=== PATIENT | male | born 1955 | race American Indian/Alaskan Native ===

== ENCOUNTER 2017-11-29 01:29 | Inpatient (IN) | payer MEDICAID ==
[2017-11-29 02:25] LABS: Basophils % (Auto) 0.7 % (0.0-1.8); Eosinophils # (Auto) 0.1 K/mm3 (0.0-0.4); Eosinophils % (Auto) 1.1 % (0.0-4.3); Hemoglobin 13.9 gm/dl (11.8-15.2); Lymphocytes # (Auto) 2.5 K/mm3 (1.2-5.4); Lymphocytes % (Auto) 40.4 % (13.4-35.0); Mean Corpuscular HGB Conc 34 % (32-34); Mean Corpuscular Hemoglobin 31 pg (28-32); Mean Corpuscular Volume 92 fl (84-94); Monocytes # (Auto) 0.5 K/mm3 (0.0-0.8); Monocytes % (Auto) 7.7 % (0.0-7.3); Platelet Count 365 K/mm3 (140-440); Red Blood Count 4.46 M/mm3 (3.65-5.03); Red Cell Distribution Width 13.8 % (13.2-15.2)
[2017-11-29 02:43] LABS: BUN/Creatinine Ratio 15; Blood Urea Nitrogen 9 mg/dL (9-20); Calcium 9.1 mg/dL (8.4-10.2); Hemolysis Index 14
--- NOTE | 2017-11-29 03:55 | Emergency Department Report ---
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 Patient denies nausea, vomiting, shortness of breath, or diaphoresis. Pain improved with nitroglycerin sublingual 1 and aspirin in route to the hospital. Patient presented stating his pain was 5/10 in intensity but at time of my evaluation pain was down to 0. No calf tenderness or edema reported. He is compliant with his aspirin and Plavix and other medication. 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 05/29/17 Unknown Rx Clopidogrel [Plavix] 75 mg PO QDAY #30 tablet 05/29/17 Unknown Rx Lisinopril [Zestril TAB] 40 mg PO QDAY #30 tablet 05/29/17 Unknown Rx Metoprolol [Lopressor TAB] 100 mg PO QHS #30 tablet 05/29/17 Unknown Rx Pravastatin [Pravachol] 40 mg PO QHS #30 tablet 05/29/17 Unknown Rx amLODIPine [Norvasc] 5 mg PO DAILY #30 tablet 05/29/17 Unknown Rx Furosemide [Lasix] 20 mg PO QDAY #30 tablet 05/30/17 Unknown Rx ISOSORBIDE MONOnitrate [Imdur ER] 30 mg PO DAILY #30 tab.er.24h 05/30/17 Unknown Rx Allergies Allergy/AdvReac Type Severity Reaction Status Date / Time No Known Allergies Allergy Verified 04/24/15 20:47 Heart Score - HEART Score History: Slightly suspicious EKG: Non-specific Age: 45-65 Risk factors: > 3 risk factors or hx of atherosclerotic disease Troponin: < normal limit HEART Score: 4 ED Review of Systems ROS: Stated complaint: CHEST PAIN Other details as noted in HPI Comment: All other systems reviewed and negative ED Past Medical Hx - Past Medical History Previous Medical History?: Yes Hx Hypertension: Yes Hx Congestive Heart Failure: Yes (ischemic cardiopathy with EF of 30-35%) Hx Diabetes: Yes Hx Asthma: No Hx COPD: No Additional medical history: Cardiac stent, high cholesterol - Surgical History Past Surgical History?: Yes Hx Coronary Stent: Yes (LAD and mid circumflex artery stent) - Social History Smoking Status: Current Every Day Smoker Substance Use Type: None - Medications Home Medications: Home Medications Medication Instructions Recorded Confirmed Last Taken Type Metformin HCl [Glumetza] 1,000 mg PO BID 08/26/13 05/28/17 Unknown History Potassium Chloride [Klor-Con M10] 10 meq PO AC 08/26/13 05/28/17 Unknown History glipiZIDE [glipiZIDE XL] 10 mg PO QDAY 08/26/13 05/28/17 Unknown History Gentamicin 0.3% Ophth Soln 1 drops OP Q4H #1 bottle 04/08/15 05/28/17 Unknown Rx Aspirin [Adult Low Dose Aspirin EC] 81 mg PO DAILY #30 tablet. 05/29/17 Unknown Rx Clopidogrel [Plavix] 75 mg PO QDAY #30 tablet 05/29/17 Unknown Rx Lisinopril [Zestril TAB] 40 mg PO QDAY #30 tablet 05/29/17 Unknown Rx Metoprolol [Lopressor TAB] 100 mg PO QHS #30 tablet 05/29/17 Unknown Rx Pravastatin [Pravachol] 40 mg PO QHS #30 tablet 05/29/17 Unknown Rx amLODIPine [Norvasc] 5 mg PO DAILY #30 tablet 05/29/17 Unknown Rx Furosemide [Lasix] 20 mg PO QDAY #30 tablet 05/30/17 Unknown Rx ISOSORBIDE MONOnitrate [Imdur ER] 30 mg PO DAILY #30 tab.er.24h 05/30/17 Unknown Rx ED Physical Exam - General Limitations: No Limitations - Other Other exam information: General: No limitations, patient is alert in no acute distress Head exam: Atraumatic, normocephalic Eyes exam: Normal appearance ENT: Moist mucous membrane, normal oropharynx Neck exam: Normal inspection, full range of motion, no meningismus nontender Respiratory exam: Clear to auscultation bilateral, no wheezes, rales, crackles Cardiovascular: Normal rate and rhythm, normal heart sounds Abdomen: Soft, nondistended, and nontender, with normal bowel sounds, no rebound, or guarding. Chest wall nontender Extremity: Full range of motion normal inspection no deformity, tenderness or edema Back: Normal Inspection, full range of motion, no tenderness Neurologic: Alert, oriented x3, cranial nerves intact, no motor or sensory deficit Psychiatric: normal affect, normal mood Skin: Warm, dry, intact ED Course Vital Signs 11/29/17 11/29/17 01:46 01:54 Temperature 98.2 F Pulse Rate 66 Respiratory 18 16 Rate Blood Pressure 137/76 O2 Sat by Pulse 99 97 Oximetry - Consultations Consultation #1: 11/29/17 03:56 consult ordered for BRIELLE heart under Dr Meggan Barrett did not call tonight since pt is pain free, neg enzymes, and unchanged ekg may be consulted in am ED Medical Decision Making - Lab Data Result diagrams: 11/29/17 01:59 11/29/17 01:59 Lab Results 11/29/17 11/29/17 11/29/17 Range/Units 01:59 01:59 02:50 WBC 6.1 (4.5-11.0) K/mm3 RBC 4.46 (3.65-5.03) M/mm3 Hgb 13.9 (11.8-15.2) gm/dl Hct 41.0 (35.5-45.6) % MCV 92 (84-94) fl MCH 31 (28-32) pg MCHC 34 (32-34) % RDW 13.8 (13.2-15.2) % Plt Count 365 (140-440) K/mm3 Lymph % (Auto) 40.4 H (13.4-35.0) % [place] % (Auto) 7.7 H (0.0-7.3) % Eos % (Auto) 1.1 (0.0-4.3) % Baso % (Auto) 0.7 (0.0-1.8) % Lymph # 2.5 (1.2-5.4) K/mm3 [place] # 0.5 (0.0-0.8) K/mm3 Eos # 0.1 (0.0-0.4) K/mm3 Baso # 0.0 (0.0-0.1) K/mm3 Seg Neutrophils % 50.1 (40.0-70.0) % Seg Neutrophils # 3.1 (1.8-7.7) K/mm3 D-Dimer < 135.00 (0-234) ng/mlDDU Sodium 139 (137-145) mmol/L Potassium 3.8 (3.6-5.0) mmol/L Chloride 102.9 (98-107) mmol/L Carbon Dioxide 24 (22-30) mmol/L Anion Gap 16 mmol/L BUN 9 (9-20) mg/dL Creatinine 0.6 L (0.8-1.5) mg/dL Estimated GFR > 60 ml/min BUN/Creatinine Ratio 15 % Glucose 136 H (75-100) mg/dL Calcium 9.1 (8.4-10.2) mg/dL Troponin T < 0.010 (0.00-0.029) ng/mL - EKG Data -: EKG Interpreted by Ca EKG shows normal: sinus rhythm, axis (qrs -1), QRS complexes (qrsd 92), ST-T waves (no stemi) Rate: normal (64) - EKG Data When compared to previous EKG there are: no significant change - Radiology Data Radiology results: report reviewed read by radiology cxr: naf - Medical Decision Making Patient presents with atypical chest pain but has significant cardiac risk factors EKG unchanged compared to previous, initial troponin negative, and d-dimer negative Pain-free after nitroglycerin and aspirin given prior to patient arrival Given his significant cardiac history patient be admitted for cardiology evaluation to determine if further testing or medication modification is required. Consult ordered - Differential Diagnosis chest x-ray, a tubal chest pain, costochondritis, [place], unstable angina, PE Critical Care Time: No Critical care attestation.: If time is entered above; I have spent that time in minutes in the direct care of this critically ill patient, excluding procedure time. 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
--- NOTE | 2017-11-29 04:31 | XRay Report ---
FINAL REPORT PROCEDURE: XR CHEST 1V AP TECHNIQUE: Chest radiograph anteroposterior view. CPT 48577 HISTORY: left cp COMPARISON: No prior studies are available for comparison. FINDINGS: Heart: Normal. Mediastinum/Vessels: Normal. Lungs/Pleural space: Normal. Bony thorax: No acute osseous abnormality. Life support devices: None. IMPRESSION: No acute cardiopulmonary abnormality.
[2017-11-29] MEDS ORDERED: MORPHINE IV PRN (04:33)
[2017-11-29] MEDS ORDERED: TYLENOL PO PRN (04:35)
[2017-11-29] MEDS ORDERED: NITROSTAT SL PRN (04:35)
[2017-11-29] MEDS ORDERED: ZOFRAN IV PRN (04:38)
[2017-11-29] MEDS: NITRO-BID 2% TP SCH ×2 (05:19→10:58)
--- NOTE | 2017-11-29 05:48 | History and Physical Report ---
CHIEF COMPLAINT: Chest pain. HISTORY OF PRESENT ILLNESS: The patient is a 62-year-old male who started having left-sided chest pain when he was having an argument with a family member, and said that the pain was about 5/10 in intensity. The pain did not radiate, it was not associated with nausea, vomiting, shortness of breath or diaphoresis. The pain was relieved with nitroglycerin and also with aspirin which was given to the patient en route to the hospital. There is no history of dizziness. No history of fever, cough and pain is not affected by movement or deep breath. PAST MEDICAL HISTORY: The patient's past medical history is pertinent for hypertension, congestive heart failure due to his ischemic cardiomyopathy with ejection fraction of 30-35%. The patient also has past history of diabetes mellitus, and coronary artery disease. Also, there is past history of high cholesterol. PAST SURGICAL HISTORY: Pertinent for cardiac stent placed, which was done in May 2017 in this hospital. FAMILY HISTORY: Noncontributory. SOCIAL HISTORY: The patient smokes cigarettes, does not drink alcohol and does not use illicit drugs. MEDICATIONS: The patient is on metformin 1000 mg by mouth twice daily, potassium chloride 10 mEq by mouth a.c., glipizide 10 mg by mouth daily, gentamicin ophthalmic solution 1 drop to the affected eye every 4 hours. The patient is on 81 mg daily by mouth daily, enteric coated, and on Plavix 75 mg by mouth patient, Zestril 40 mg by mouth daily, Lopressor 100 mg at bedtime, Pravastatin 40 mg at bedtime, amlodipine 5 mg by mouth daily, Lasix 20 mg by mouth daily, Imdur extended release by mouth daily. ALLERGIES: There are no known drug allergies. REVIEW OF SYSTEMS: CONSTITUTIONAL: There is no fever, no chills, no diaphoresis. HEENT: There is no headache or sore throat. CARDIOVASCULAR: Chest pain is present. No orthopnea. RESPIRATORY: There is no shortness of breath or cough. GASTROINTESTINAL: There is no nausea, no vomiting, no abdominal pain, diarrhea or constipation. NEUROLOGICAL: There is no numbness, no dizziness, no altered mental status. MUSCULOSKELETAL: There is no joint pain or swelling. DERMATOLOGICAL: There is no skin rash or itching. GENITOURINARY SYSTEM: There is no dysuria, hematuria or flank pain. Rest of system review is normal. PHYSICAL EXAMINATION: GENERAL: At the time of exam, the patient was found to be alert, oriented x 3 and not in acute distress. VITAL SIGNS: At the time of presentation showed temperature of 98.2 degrees Fahrenheit, pulse 66, respirations 18, blood pressure 137/76, O2 sat of 99% on room air. HEENT: Showed pupils to be equal, round, reactive to light and accommodation. Extraocular muscles are intact. NECK: Supple with no JVD or carotid bruit. CARDIOVASCULAR: Showed normal first and second heart sounds with no gallops or murmurs. RESPIRATORY: Showed good air entry on both sides of the lungs with no abnormal breath sounds. GASTROINTESTINAL SYSTEM: Show abdomen to be full, soft, nontender with no organomegaly or rigidity. NEUROLOGIC: Shows no focal deficit. MUSCULOSKELETAL SYSTEM: Show no joint swelling or tenderness. DERMATOLOGICAL SYSTEM: Show no skin rash. GENITOURINARY SYSTEM: Showing no costovertebral angle tenderness. PERTINENT LABORATORY AND IMAGING STUDIES: The patient had portable chest x-ray done that shows no active cardiopulmonary lesion. The patient's lab results shows CBC with normal white count, normal hemoglobin, normal hematocrit as well as normal MCV with CBC differential showing elevated lymphocyte count of 40.4% and elevated monocyte count of 7.7% with normal segmented neutrophils. The patient's coagulation studies were unremarkable. Chemistry was unremarkable. The patient's troponin level came back normal. DIAGNOSIS: Chest pain. PLAN: 1. The patient will be admitted to telemetry. 2. The patient will have cardiac enzymes involving troponin, total CK, and CKMB, check q 6 hours x 2 more level. 3. The patient will be on aspirin 325 mg by mouth daily and heparin 5000 units subQ q. 12 hours for DVT prophylaxis. 4. The patient will be on IV morphine 2 mg every 5 minutes as needed for chest pain and will be on sublingual nitroglycerin 0.4 mg every 5 minutes as needed for breakthrough chest pain. The patient will be on nitro paste 1-inch to the anterior chest wall q.6 hours, and will be on Zofran 4 mg IV every 8 hours for nausea and vomiting. 5. The patient will be on oxygen by nasal cannula 2 liters/minute and will be on Tylenol 650 mg by mouth every 4 hours for fever and headache. 6. The patient will continue Cardiology consult with Dr. Barrett, which was requested by the Emergency Room because of chest pain and history of stent placement within the last 6 to 7 months. 7. The patient's home medications will be reconciled and started when the patient starts taking medications by mouth. The patient will remain n.p.o. 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 JOB# [id number] OCN/NTS
[2017-11-29 07:29] LABS: Creatine Kinase MB 1.6 ng/mL (0.0-4.0)
--- NOTE | 2017-11-29 08:42 | Consultation ---
History of Present Illness Consult date: 11/29/17 Consult reason: chest pain History of present illness: This is a 62yr old male who is admitted with atypical chest pain thus this cardiac consultation. Cardiac enzymes are negative thus far. His presenting ECG is a sinus rhythm with left ventricular hypertrophy. He is on medical therapy for ischemic cardiomyopathy and coronary artery disease. Just 6 months ago he underwent a cardiac catheterization that reports patent stents mid LAD and mid Circ. There is MOLD TOOLER of the distal RCA, with L-R collaterals. Ejection Fraction of 30%. Patient reports since his initial treatment his chest pain has resolved. He is currently chest pain free. He denies shortness of breath. Medications and Allergies Allergies Allergy/AdvReac Type Severity Reaction Status Date / Time No Known Allergies Allergy Verified 04/24/15 20:47 Home Medications Medication Instructions Recorded Confirmed Last Taken Type Metformin HCl [Glumetza] 1,000 mg PO BID 08/26/13 05/28/17 Unknown History Potassium Chloride [Klor-Con M10] 10 meq PO AC 08/26/13 05/28/17 Unknown History glipiZIDE [glipiZIDE XL] 10 mg PO QDAY 08/26/13 05/28/17 Unknown History Gentamicin 0.3% Ophth Soln 1 drops OP Q4H #1 bottle 04/08/15 05/28/17 Unknown Rx Aspirin [Adult Low Dose Aspirin EC] 81 mg PO DAILY #30 tablet.dr 05/29/17 Unknown Rx Clopidogrel [Plavix] 75 mg PO QDAY #30 tablet 05/29/17 Unknown Rx Lisinopril [Zestril TAB] 40 mg PO QDAY #30 tablet 05/29/17 Unknown Rx Metoprolol [Lopressor TAB] 100 mg PO QHS #30 tablet 05/29/17 Unknown Rx Pravastatin [Pravachol] 40 mg PO QHS #30 tablet 05/29/17 Unknown Rx amLODIPine [Norvasc] 5 mg PO DAILY #30 tablet 05/29/17 Unknown Rx Furosemide [Lasix] 20 mg PO QDAY #30 tablet 05/30/17 Unknown Rx ISOSORBIDE MONOnitrate [Imdur ER] 30 mg PO DAILY #30 tab.er.24h 05/30/17 Unknown Rx Active Meds: Active Medications Acetaminophen (Tylenol) 650 mg PO Q4H PRN PRN Reason: Pain, Mild (1-3) Aspirin (Aspirin) 325 mg PO QDAY [facility] Heparin Sodium (Porcine) (Heparin) 5,000 unit SUB-Q Q12HR VERNA Morphine Sulfate (Morphine) 2 mg IV Q5MIN PRN PRN Reason: Chest Pain Nitroglycerin (Nitrostat) 0.4 mg SL .Q5MIN PRN PRN Reason: Chest Pain Nitroglycerin (Nitro-Bid 2%) 1 inch TP QIDNTG [facility]; Protocol Last Admin: 11/29/17 05:19 Dose: 1 inch Ondansetron HCl (Zofran) 4 mg IV Q8H PRN PRN Reason: Nausea And Vomiting Physical Examination Vital Signs Pulse BP 68 137/76 11/29/17 01:37 11/29/17 01:37 General appearance: no acute distress HEENT: Positive: PERRL Cardiac: Positive: Reg Rate and Rhythm Results 11/29/17 01:59 11/29/17 01:59 Cardiac Enzymes 11/29/17 Range/Units 06:12 CK-MB (CK-2) 1.6 (0.0-4.0) ng/mL CBC 11/29/17 Range/Units 01:59 WBC 6.1 (4.5-11.0) K/mm3 RBC 4.46 (3.65-5.03) M/mm3 Hgb 13.9 (11.8-15.2) gm/dl Hct 41.0 (35.5-45.6) % Plt Count 365 (140-440) K/mm3 Lymph # 2.5 (1.2-5.4) K/mm3 [place] # 0.5 (0.0-0.8) K/mm3 Eos # 0.1 (0.0-0.4) K/mm3 Baso # 0.0 (0.0-0.1) K/mm3 Comprehensive Metabolic Panel 11/29/17 Range/Units 01:59 Sodium 139 (137-145) mmol/L Potassium 3.8 (3.6-5.0) mmol/L Chloride 102.9 (98-107) mmol/L Carbon Dioxide 24 (22-30) mmol/L BUN 9 (9-20) mg/dL Creatinine 0.6 L (0.8-1.5) mg/dL Glucose 136 H (75-100) mg/dL Calcium 9.1 (8.4-10.2) mg/dL Assessment and Plan Chest pain, atypical negative cardiac enzymes no acute ischemic changes on his ECG C done 05/2017: 1. Multivessel CAD. 2. Ischemic CMP, EF 30%. 3. Patent stents mid LAD and mid Circ. 4. 100% MOLD TOOLER of the distal RCA, with L-R collaterals. Hx of CAD Diabetes mellitus Tobacco abuse Advised tobacco cessation. Resume medical therapy for coronary artery disease and ischemic cardiomyopathy.
[2017-11-29 09:11] VITALS: BP 157/89
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
[2017-11-29] MEDS ORDERED: HEPARIN SUB-Q SCH (10:00)
[2017-11-29] MEDS ORDERED: ASPIRIN PO SCH (10:00)
== END 2017-11-29 13:30 | disposition home or self-care (01) | DRG 206 ==
LOC: ED 01:29 → 4A 05:38
PROVIDERS: ADMIT Internal Medicine; ATTEND Internal Medicine
DX: M94.0 Chondrocostal junction syndrome [Tietze] (principal); E11.9 Type 2 diabetes mellitus without complications; I25.5 Ischemic cardiomyopathy; I25.10 Atherosclerotic heart disease of native coronary artery without angina pectoris; Z95.5 Presence of coronary angioplasty implant and graft; F17.210 Nicotine dependence, cigarettes, uncomplicated; I10 Essential (primary) hypertension; E78.00 Pure hypercholesterolemia, unspecified; Z71.6 Tobacco abuse counseling
CPT/HCPCS: 36415; 71045; 80048; 82550; 82553; 82962; 84484; 85025; 85379; 93005; 93010; 99406; J1644

== ENCOUNTER 2018-07-13 12:58 | Inpatient (IN) | payer MEDICAID ==
[2018-07-13] MEDS ORDERED: ASPIRIN PO ONE (14:24)
[2018-07-13] MEDS ORDERED: NITRO-BID 2% TP ONE (14:24)
--- NOTE | 2018-07-13 14:28 | Emergency Department Report ---
HPI - General Chief Complaint: Chest Pain Time Seen by Provider: 07/13/18 14:16 - HPI HPI: Room 1 The patient is a 63-year-old male presenting with a chief complaint chest pain. Patient states his symptoms began last night with left-sided/substernal chest discomfort lasted approximately 10 minutes. He states the pain resolved when he went to sleep. This morning the patient states the chest pain returned for another 5 minutes then resolved. Patient denies shortness of breath, nausea/vomiting or diaphoresis. The patient had a cardiac cath requiring a cardiac stent placement over 10 years ago. Location: Chest Duration: [See above] Quality: Pain Severity: Moderate Modifying factors: [see above] Context: [see above] Mode of transportation: [not driving] ED Past Medical Hx - Past Medical History Hx Hypertension: Yes Hx Congestive Heart Failure: Yes Hx Diabetes: Yes Additional medical history: Cardiac stent, high cholesterol - Surgical History Hx Coronary Stent: Yes - Family History Family history: no significant - Social History Smoking Status: Former Smoker (none 6 months) Substance Use Type: None (denies illicit drug use) - Medications Home Medications: Home Medications Medication Instructions Recorded Confirmed Last Taken Type Metformin HCl [Glumetza] 1,000 mg PO BID 08/26/13 02/24/18 Unknown History Aspirin [Adult Low Dose Aspirin EC] 81 mg PO DAILY #30 tablet.dr 02/25/18 Unknown Rx Clopidogrel [Plavix] 75 mg PO QDAY #30 tablet 02/25/18 Unknown Rx Furosemide [Lasix TAB] 40 mg PO QDAY #30 tablet 02/25/18 Unknown Rx ISOSORBIDE MONOnitrate [Imdur ER] 30 mg PO DAILY #30 tab.er.24h 02/25/18 Unknown Rx Lisinopril [Zestril TAB] 2.5 mg PO QDAY #30 tablet 02/25/18 Unknown Rx Metoprolol [Lopressor TAB] 50 mg PO DAILY #30 tablet 02/25/18 Unknown Rx Potassium Chloride [Klor-Con M10] 10 meq PO AC #30 tab.er.prt 02/25/18 Unknown Rx Pravastatin [Pravachol] 20 mg PO QHS #30 tablet 02/25/18 Unknown Rx amLODIPine [Norvasc] 5 mg PO DAILY #30 tablet 02/25/18 Unknown Rx glipiZIDE [glipiZIDE XL] 10 mg PO QDAY #30 tab.er.24 04/04/18 Unknown Rx ED Review of Systems ROS: Stated complaint: CHEST PAIN Other details as noted in HPI Constitutional: denies: diaphoresis Eyes: denies: eye pain ENT: denies: throat pain Respiratory: denies: shortness of breath Cardiovascular: chest pain Endocrine: no symptoms reported Gastrointestinal: denies: nausea, vomiting Genitourinary: denies: dysuria Musculoskeletal: denies: back pain Neurological: denies: headache Physical Exam - Physical Exam Vital Signs: Vital Signs 07/13/18 13:51 Temperature 97.9 F Pulse Rate 67 Respiratory 16 Rate Blood Pressure 133/99 O2 Sat by Pulse 97 Oximetry Physical Exam: GENERAL: The patient is well-developed well-nourished male lying on stretcher not appearing to be in acute distress. [] HEENT: Normocephalic. Atraumatic. Extraocular motions are intact. Patient has moist mucous membranes. NECK: Supple. Trachea midline CHEST/LUNGS: Clear to auscultation. There is no respiratory distress noted. HEART/CARDIOVASCULAR: Regular. There is no tachycardia. There is no gallop rub or murmur. ABDOMEN: Abdomen is soft, nontender. Patient has normal bowel sounds. There is no abdominal distention. SKIN: There is no rash. There is no edema. There is no diaphoresis. NEURO: The patient is awake, alert, and oriented. The patient is cooperative. The patient has normal speech MUSCULOSKELETAL: There is no evidence of acute injury. ED Course Vital Signs 07/13/18 13:51 Temperature 97.9 F Pulse Rate 67 Respiratory 16 Rate Blood Pressure 133/99 O2 Sat by Pulse 97 Oximetry ED Medical Decision Making - Lab Data Result diagrams: 07/13/18 14:29 07/13/18 14:29 Laboratory Tests 07/13/18 07/13/18 07/13/18 14:29 14:29 14:29 WBC 5.8 RBC 4.31 Hgb 13.6 Hct 38.8 MCV 90 MCH 31 MCHC 35 H RDW 13.8 Plt Count 361 Lymph % (Auto) 42.3 H [place] % (Auto) 8.9 H Eos % (Auto) 1.3 Baso % (Auto) 0.5 Lymph # 2.5 [place] # 0.5 Eos # 0.1 Baso # 0.0 Seg Neutrophils % 47.0 Seg Neutrophils # 2.7 PT 12.8 INR 0.91 APTT 26.9 Sodium 141 Potassium 3.6 Chloride 101.6 Carbon Dioxide 26 Anion Gap 17 BUN 9 Creatinine 0.8 Estimated GFR > 60 BUN/Creatinine Ratio 11 Glucose 81 Calcium 8.4 Magnesium 1.80 Total Creatine Kinase 144 CK-MB (CK-2) 1.6 CK-MB (CK-2) Rel Index 1.1 Troponin T < 0.010 NT-Pro-B Natriuret Pep 1205 H - EKG Data -: EKG Interpreted by Me Rate: normal - EKG Data When compared to previous EKG there are: previous EKG unavailable Interpretation: other (atrial fibrillation at a rate of 39 beats per minute) - Radiology Data Radiology results: image reviewed (chest x-ray) interpreted by me: Chest x-ray-no focal infiltrates, no pneumothorax - Differential Diagnosis ACS, pericarditis, new-onset atrial fibrillation Critical care attestation.: If time is entered above; I have spent that time in minutes in the direct care of this critically ill patient, excluding procedure time. ED Disposition Clinical Impression: New onset atrial fibrillation, Chest pain Disposition: -09 OP ADMIT IP TO THIS HOSP Is pt being admited?: Yes Does the pt Need Aspirin: Yes Condition: Fair Instructions: Chest Pain (ED) Referrals: MILI BUTLER MD [Primary Care Provider] - 3-5 Days Time of Disposition: 15:11 (hospitalist paged (Dr Modi))
[2018-07-13 14:44] LABS: Basophils % (Auto) 0.5 % (0.0-1.8); Eosinophils # (Auto) 0.1 K/mm3 (0.0-0.4); Eosinophils % (Auto) 1.3 % (0.0-4.3); Hematocrit 38.8 % (35.5-45.6); Hemoglobin 13.6 gm/dl (11.8-15.2); Lymphocytes # (Auto) 2.5 K/mm3 (1.2-5.4); Lymphocytes % (Auto) 42.3 % (13.4-35.0); Mean Corpuscular HGB Conc 35 % (32-34); Mean Corpuscular Volume 90 fl (84-94); Monocytes # (Auto) 0.5 K/mm3 (0.0-0.8); Monocytes % (Auto) 8.9 % (0.0-7.3); Platelet Count 361 K/mm3 (140-440); Red Blood Count 4.31 M/mm3 (3.65-5.03); Red Cell Distribution Width 13.8 % (13.2-15.2)
[2018-07-13 14:56] LABS: INR 0.91 (0.87-1.13); Partial Thromboplastin Time 26.9 Sec. (24.2-36.6)
--- NOTE | 2018-07-13 15:04 | XRay Report ---
AP CHEST: HISTORY: chest pain Cardiomegaly has resolved since 02/24/18. AP view of the chest demonstrates a normal mediastinal and cardiac contour with clear lungs and normal bony and soft tissue structures. IMPRESSION: Unremarkable AP chest.
[2018-07-13 15:05] LABS: Creatine Kinase MB 1.6 ng/mL (0.0-4.0)
[2018-07-13 15:07] LABS: BUN/Creatinine Ratio 11; Blood Urea Nitrogen 9 mg/dL (9-20); Calcium 8.4 mg/dL (8.4-10.2); Hemolysis Index 8
[2018-07-13 15:15] LABS: Free T4 (Free Thyroxine) 1.16 ng/dL (0.76-1.46)
--- NOTE | 2018-07-13 15:55 | History and Physical Report ---
History of Present Illness Chief complaint: My chest hurts History of present illness: 63 YO Male with HTN, Systolic CHF, DM, HLD, CAD S/P Stent Placement, Obesity presents to ED for evaluation. Pt states that he has experienced chest pain over the past 1 day with worsening symptoms over the past 6 hours. Pt states that pain is 6-7/10, Substernal, Localized to the left chest, lasted for over 10 minutes which prompted patient to come to ED. Pt acknowledges decreased exercise tolerance, Orthopnea/PND, dypsnea on exertion. Pt denies fever, chills,palpitations, shortness of breath, prolonged travel/immobility, produ ctive cough, skin rash, or recent ill contacts. Pt seen and evaluated in ED and found to have symptoms consistent with CHF Decompensation as well as Chest Pain. Pt admitted to telemetry. Cardiology consulted in ED. Past History Past Medical History: CAD, diabetes, heart failure, hypertension, hyperlipidemia Past Surgical History: Other (Cardiac stent placement) Social history: single. denies: smoking, alcohol abuse, prescription drug abuse Family history: CAD, diabetes, hypertension Medications and Allergies Allergies Allergy/AdvReac Type Severity Reaction Status Date / Time No Known Allergies Allergy Verified 07/13/18 13:51 Home Medications Medication Instructions Recorded Confirmed Last Taken Type Metformin HCl [Glumetza] 1,000 mg PO BID 08/26/13 07/13/18 Unknown History Aspirin [Adult Low Dose Aspirin EC] 81 mg PO DAILY #30 tablet.dr 02/25/18 07/13/18 Unknown Rx Clopidogrel [Plavix] 75 mg PO QDAY #30 tablet 02/25/18 07/13/18 Unknown Rx Furosemide [Lasix TAB] 40 mg PO QDAY #30 tablet 02/25/18 07/13/18 Unknown Rx ISOSORBIDE MONOnitrate [Imdur ER] 30 mg PO DAILY #30 tab.er.24h 02/25/18 07/13/18 Unknown Rx Lisinopril [Zestril TAB] 2.5 mg PO QDAY #30 tablet 02/25/18 07/13/18 Unknown Rx Metoprolol [Lopressor TAB] 50 mg PO DAILY #30 tablet 02/25/18 07/13/18 Unknown R x Potassium Chloride [Klor-Con M10] 10 meq PO AC #30 tab.er.prt 02/25/18 07/13/18 Unknown Rx Pravastatin [Pravachol] 20 mg PO QHS #30 tablet 02/25/18 07/13/18 Unknown Rx amLODIPine [Norvasc] 5 mg PO DAILY #30 tablet 02/25/18 07/13/18 Unknown Rx glipiZIDE [glipiZIDE XL] 10 mg PO QDAY #30 tab.er.24 04/04/18 07/13/18 Unknown Rx Review of Systems Constitutional: no weight loss, no weight gain, no fever, no chills Ears, nose, mouth and throat: no ear pain, no ear discharge, no tinnitis, no decreased hearing, no nose pain Cardiovascular: chest pain, orthopnea, dyspnea on exertion, paroxysmal nocturnal dyspnea, leg edema, decreased exercise tolerance, no lightheadedness Respiratory: no cough, no cough with sputum, no hemoptysis Gastrointestinal: no nausea, no vomiting, no diarrhea Genitourinary Male: no flank pain, no discharge, no urinary frequency, no urinary hesitancy Rectal: no pain, no incontinence, no bleeding Musculoskeletal: no neck stiffness, no neck pain, no shooting arm pain, no arm numbness/tingling, no low back pain Integumentary: no rash, no pruritis, no redness, no sores, no wounds Neurological: no transient paralysis, no paralysis, no weakness, no parathesias, no numbness, no tingling Psychiatric: no anxiety, no memory loss, no change in sleep habits, no sleep disturbances, no hypersomnia, no change in appetite Endocrine: no cold intolerance, no heat intolerance, no polyphagia, no excessive thirst, no polydipsia Hematologic/Lymphatic: no easy bruising, no easy bleeding Allergic/Immunologic: no urticaria, no allergic rhinitis, no wheezing Exam - Constitutional Vitals: Temp Pulse Resp BP Pulse Ox 97.9 F 45 L 16 166/88 97 07/13/18 13:51 07/13/18 14:42 07/13/18 13:51 07/13/18 14:42 07/13/18 13:51 General appearance: Present: mild distress, obese - EENT Eyes: Present: PERRL ENT: hearing intact, clear oral mucosa - Neck Neck: Present: supple, normal ROM - Respiratory Respiratory effort: normal Respiratory: bilateral: CTA - Cardiovascular Heart Sounds: Present: S1 & S2. Absent: rub, click - Extremities Extremity abnormal: edema Peripheral Pulses: within normal limits - Abdominal General gastrointestinal: Present: soft, non-tender, non-distended, normal bowel sounds Male genitourinary: Present: normal - Integumentary Integumentary: Present: clear, warm, dry - Musculoskeletal Musculoskeletal: gait normal, strength equal bilaterally - Psychiatric Psychiatric: appropriate mood/affect, intact judgment & insight, memory intact - Neurologic Neurologic: CNII-XII intact, moves all extremities Results - Labs CBC & Chem 7: 07/13/18 14:29 07/13/18 14:29 Labs: Abnormal lab results 07/13/18 07/13/18 Range/Units 14:29 14:29 MCHC 35 H (32-34) % Lymph % (Auto) 42.3 H (13.4-35.0) % [place] % (Auto) 8.9 H (0.0-7.3) % NT-Pro-B Natriuret Pep 1205 H (0-900) pg/mL Assessment and Plan - Patient Problems (1) CHF (congestive heart failure) Current Visit: Yes Status: Acute Qualifiers: Heart failure type: systolic Heart failure chronicity: acute on chronic Qualified Code(s): I50.23 - Acute on chronic systolic (congestive) heart failure Plan to address problem: Admit to telemetry: Echo reviewed, cardiology consulted in ED, strict I/O, daily weight, monitor uop q shift, afterload reduction, BNP, D dimer (2) Chest pain Current Visit: Yes Status: Acute Qualifiers: Ischemic chest pain type: stable angina pectoris Plan to address problem: Admit to telemetry, serial cardiac enzymes, ekg, cardiology consulted in ED, morphine, supplemental oxygen, nitro, aspirin, (3) Diabetes Current Visit: No Status: Acute (4) HTN (hypertension) Current Visit: No Status: Acute Qualifiers: Hypertension type: essential hypertension Qualified Code(s): I10 - Essential (primary) hypertension Plan to address problem: Monitor BP q shift, continue medical management, (5) HLD (hyperlipidemia) Current Visit: Yes Status: Acute Qualifiers: Hyperlipidemia type: mixed hyperlipidemia Qualified Code(s): E78.2 - Mixed hyperlipidemia Plan to address problem: Statin therapy, lipid panel, low cholesterol diet (6) DVT prophylaxis Current Visit: Yes Status: Acute Plan to address problem: SCD to BLE while in bed.
[2018-07-13] MEDS ORDERED: MORPHINE IV PRN (15:59)
[2018-07-13] MEDS ORDERED: TYLENOL PO PRN (15:59)
[2018-07-13] MEDS ORDERED: ZOFRAN IV PRN (15:59)
[2018-07-13] MEDS ORDERED: SODIUM CHLORIDE FLUSH SYRINGE 10 ML IV PRN ×2 (15:59)
[2018-07-13] MEDS ORDERED: BABY ASPIRIN PO STA (15:59)
[2018-07-13] MEDS ORDERED: PROVENTIL IH PRN (15:59)
[2018-07-13] MEDS ORDERED: NITROSTAT SL PRN (15:59)
[2018-07-13 16:42] LABS: Chol/HDL Ratio 3.9 %
[2018-07-14] MEDS: SODIUM CHLORIDE FLUSH SYRINGE 10 ML IV SCH ×3 (00:30→22:19)
--- NOTE | 2018-07-14 01:13 | Consultation ---
History of Present Illness Consult date: 07/14/18 Consult reason: other (Chest "tingling") History of present illness: 63 YO Male with HTN, Systolic CHF, DM, HLD, CAD S/P Stent Placement, Obesity presents to ED for evaluation. Pt states that he has experienced chest pain, which he describes as a "tingling" sensation, over the past 1 day with worsening symptoms over the past 6 hours. Pt states to the admitting physician that pain is 6-7/10, Substernal, Localized to the left chest, lasted for over 10 minutes which prompted patient to come to ED. To me the patient states that he is experiencing a "tingling" sensation that is not painful substernally, that lasts for a few seconds to 5 minutes. Pt acknowledges decreased exercise tolerance, Orthopnea/PND, dypsnea on exertion to the admitting physician, but denies them to me. Pt denies palpitations, shortness of breath, dizziness or syncope. Past History Past Medical History: CAD, diabetes, heart failure, hypertension, hyperlipidemia Past Surgical History: Other (Cardiac stent placement) Social history: single. denies: smoking, alcohol abuse, prescription drug abuse Family history: CAD, diabetes, hypertension Medications and Allergies Allergies Allergy/AdvReac Type Severity Reaction Status Date / Time No Known Allergies Allergy Verified 07/13/18 13:51 Home Medications Medication Instructions Recorded Confirmed Last Taken Type Metformin HCl [Glumetza] 1,000 mg PO BID 08/26/13 07/13/18 Unknown History Aspirin [Adult Low Dose Aspirin EC] 81 mg PO DAILY #30 tablet.dr 02/25/18 07/13/18 Unknown Rx Clopidogrel [Plavix] 75 mg PO QDAY #30 tablet 02/25/18 07/13/18 Unknown Rx Furosemide [Lasix TAB] 40 mg PO QDAY #30 tablet 02/25/18 07/13/18 Unknown Rx ISOSORBIDE MONOnitrate [Imdur ER] 30 mg PO DAILY #30 tab.er.24h 02/25/18 07/13/18 Unknown Rx Lisinopril [Zestril TAB] 2.5 mg PO QDAY #30 tablet 02/25/18 07/13/18 Unknown Rx Metoprolol [Lopressor TAB] 50 mg PO DAILY #30 tablet 02/25/18 07/13/18 Unknown Rx Potassium Chloride [Klor-Con M10] 10 meq PO AC #30 tab.er.prt 02/25/18 07/13/18 Unknown Rx Pravastatin [Pravachol] 20 mg PO QHS #30 tablet 02/25/18 07/13/18 Unknown Rx amLODIPine [Norvasc] 5 mg PO DAILY #30 tablet 02/25/18 07/13/18 Unknown Rx glipiZIDE [glipiZIDE XL] 10 mg PO QDAY #30 tab.er.24 04/04/18 07/13/18 Unknown Rx Active Meds: Active Medications Acetaminophen (Tylenol) 650 mg PO Q4H PRN PRN Reason: Pain MILD(1-3)/Fever >100.5/QUEVEDO Albuterol (Proventil) 2.5 mg IH Q4HRT PRN PRN Reason: Shortness Of Breath Morphine Sulfate (Morphine) 2 mg IV Q4H PRN PRN Reason: Pain, Moderate (4-6) Nitroglycerin (Nitrostat) 0.4 mg SL Q5M PRN PRN Reason: Chest Pain Ondansetron HCl (Zofran) 4 mg IV Q8H PRN PRN Reason: Nausea And Vomiting Sodium Chloride (Sodium Chloride Flush Syringe 10 Ml) 10 ml IV BID VERNA Last Admin: 07/14/18 00:30 Dose: 10 ml Documented by: Sodium Chloride (Sodium Chloride Flush Syringe 10 Ml) 10 ml IV PRN PRN PRN Reason: LINE FLUSH Sodium Chloride (Sodium Chloride Flush Syringe 10 Ml) 10 ml IV PRN PRN PRN Reason: LINE FLUSH Review of Systems All systems: negative (pertinent positives in HPI) Physical Examination Vital Signs Temp Pulse Resp BP Pulse Ox 97.9 F 67 16 133/99 97 07/13/18 13:51 07/13/18 13:51 07/13/18 13:51 07/13/18 13:51 07/13/18 13:51 General appearance: no acute distress HEENT: Positive: PERRL, EOMI Cardiac: Positive: Reg Rate and Rhythm, S1/S2 Lungs: Positive: Normal Exam Neuro: Positive: Grossly Intact Abdomen: Positive: Soft, Active Bowel Sounds Extremities: Present: normal. Absent: edema Results 07/13/18 14:29 07/14/18 05:40 Cardiac Enzymes 03/08/19 Range/Units 14:29 CK-MB (CK-2) 1.6 (0.0-4.0) ng/mL Coagulation 07/13/18 Range/Units 14:29 PT 12.8 (12.2-14.9) Sec. INR 0.91 (0.87-1.13) APTT 26.9 (24.2-36.6) Sec. Lipids 07/13/18 Range/Units 16:14 Triglycerides 97 (2-149) mg/dL Cholesterol 156 (50-199) mg/dL HDL Cholesterol 40 (40-59) mg/dL Cholesterol/HDL Ratio 3.90 % CBC 07/13/18 Range/Units 14:29 WBC 5.8 (4.5-11.0) K/mm3 RBC 4.31 (3.65-5.03) M/mm3 Hgb 13.6 (11.8-15.2) gm/dl Hct 38.8 (35.5-45.6) % Plt Count 361 (140-440) K/mm3 Lymph # 2.5 (1.2-5.4) K/mm3 [place] # 0.5 (0.0-0.8) K/mm3 Eos # 0.1 (0.0-0.4) K/mm3 Baso # 0.0 (0.0-0.1) K/mm3 Comprehensive Metabolic Panel 07/13/18 Range/Units 14:29 Sodium 141 (137-145) mmol/L Potassium 3.6 (3.6-5.0) mmol/L Chloride 101.6 (98-107) mmol/L Carbon Dioxide 26 (22-30) mmol/L BUN 9 (9-20) mg/dL Creatinine 0.8 (0.8-1.5) mg/dL Glucose 81 (75-100) mg/dL Calcium 8.4 (8.4-10.2) mg/dL EKG interpretations - Telemetry EKG Rhythm: Sinus Rhythm Assessment and Plan (1) CHF (congestive heart failure) Echo reviewed Patient has a known ischemic cardiomyopathy with EF 30-35% Continue medical therapy with BB and ACEi Currently appears euvolemic by phyical exam strict I/O, daily weight gentle diuresis as needed (2) Chest pain patient had a LHC 05/25 that showed patent LM, LAD and LCx. Patient has an occluded RCA in the midsegment that is filled distally via left to right collaterals No further workup at this time Maximize medical therapy for coronary disease (3) Diabetes management per primary (4) HTN (hypertension) Maximize medical therapy for blood pressure (5) HLD (hyperlipidemia) high intensity statin
[2018-07-14] MEDS ORDERED: APRESOLINE IV PRN (03:00)
[2018-07-14] MEDS: NITRO-BID 2% TP SCH ×5 (03:26→17:57)
[2018-07-14 06:32] LABS: BUN/Creatinine Ratio 13; Blood Urea Nitrogen 8 mg/dL (9-20); Calcium 8.2 mg/dL (8.4-10.2); Hemolysis Index 5
--- NOTE | 2018-07-14 12:17 | Progress Note ---
Assessment and Plan Assessment and plan: Acute systolic heart failure exacerbation. EF 30-35%. Continue medical therapy with beta marcella and REGULO inhibitor. Cardiology reports that patient appears euvolemic by phyical exam. Continue strict I and O's, daily weight and gentle diuresis as needed. Ischemic cardiomyopathy. As above. Chest pain. Patient had a LHC 05/25 that showed patent LM, LAD and LCx. Patient has an occluded RCA in the midsegment that is filled distally via left to right collaterals. Cardiology reports no further workup at this time. Continued maximal medical therapy for coronary disease. Diabetes mellitus type 2. Continue checks and sliding scale insulin. Hypertension. Optimize BP with antihypertensive medications. Hyperlipidemia. Continue statin. Disposition. Anticipate discharge in a.m. History Interval history: No new issues overnight Hospitalist Physical - Constitutional Vitals: Temp Pulse Resp BP Pulse Ox 97.9 F 83 20 163/116 97 07/14/18 07:47 07/14/18 07:47 07/14/18 07:47 07/14/18 07:47 07/14/18 07:47 General appearance: Present: no acute distress - EENT Eyes: Present: PERRL, EOM intact ENT: hearing intact, clear oral mucosa, dentition normal - Neck Neck: Present: supple, normal ROM - Respiratory Respiratory effort: normal Respiratory: bilateral: CTA - Cardiovascular Rhythm: regular Heart Sounds: Present: S1 & S2. Absent: gallop, rub - Extremities Extremities: no ischemia, No edema, Full ROM - Abdominal General gastrointestinal: soft, non-tender, non-distended, normal bowel sounds - Integumentary Integumentary: Present: clear, warm, dry - Neurologic Neurologic: CNII-XII intact, moves all extremities Results - Labs CBC & Chem 7: 07/13/18 14:29 07/14/18 05:40 Labs: Laboratory Last Values WBC 5.8 K/mm3 (4.5-11.0) 07/13/18 14:29 RBC 4.31 M/mm3 (3.65-5.03) 07/13/18 14:29 Hgb 13.6 gm/dl (11.8-15.2) 07/13/18 14:29 Hct 38.8 % (35.5-45.6) 07/13/18 14:29 MCV 90 fl (84-94) 07/13/18 14:29 MCH 31 pg (28-32) 07/13/18 14:29 MCHC 35 % (32-34) H 07/13/18 14:29 RDW 13.8 % (13.2-15.2) 07/13/18 14:29 Plt Count 361 K/mm3 (140-440) 07/13/18 14:29 Lymph % (Auto) 42.3 % (13.4-35.0) H 07/13/18 14:29 [place] % (Auto) 8.9 % (0.0-7.3) H 07/13/18 14:29 Eos % (Auto) 1.3 % (0.0-4.3) 07/13/18 14:29 Baso % (Auto) 0.5 % (0.0-1.8) 07/13/18 14:29 Lymph # 2.5 K/mm3 (1.2-5.4) 07/13/18 14:29 [place] # 0.5 K/mm3 (0.0-0.8) 07/13/18 14:29 Eos # 0.1 K/mm3 (0.0-0.4) 07/13/18 14:29 Baso # 0.0 K/mm3 (0.0-0.1) 07/13/18 14:29 Seg Neutrophils % 47.0 % (40.0-70.0) 07/13/18 14:29 Seg Neutrophils # 2.7 K/mm3 (1.8-7.7) 07/13/18 14:29 PT 12.8 Sec. (12.2-14.9) 07/13/18 14:29 INR 0.91 (0.87-1.13) 07/13/18 14:29 APTT 26.9 Sec. (24.2-36.6) 07/13/18 14:29 D-Dimer 149.77 ng/mlDDU (0-234) 07/13/18 14:24 Sodium 138 mmol/L (137-145) 07/14/18 05:40 Potassium 3.2 mmol/L (3.6-5.0) L 07/14/18 05:40 Chloride 100.6 mmol/L (98-107) 07/14/18 05:40 Carbon Dioxide 27 mmol/L (22-30) 07/14/18 05:40 Anion Gap 14 mmol/L 07/14/18 05:40 BUN 8 mg/dL (9-20) L 07/14/18 05:40 Creatinine 0.6 mg/dL (0.8-1.5) L 07/14/18 05:40 Estimated GFR > 60 ml/min 07/14/18 05:40 BUN/Creatinine Ratio 13 % 07/14/18 05:40 Glucose 138 mg/dL (75-100) H 07/14/18 05:40 POC Glucose 105 (70-105) 07/14/18 07:47 Calcium 8.2 mg/dL (8.4-10.2) L 07/14/18 05:40 Magnesium 1.80 mg/dL (1.7-2.3) 07/13/18 14:29 Total Creatine Kinase 144 units/L (55-170) 07/13/18 14:29 CK-MB (CK-2) 1.6 ng/mL (0.0-4.0) 07/13/18 14:29 CK-MB (CK-2) Rel Index 1.1 (0-4) 07/13/18 14:29 Troponin T < 0.010 ng/mL (0.00-0.029) 07/13/18 22:39 NT-Pro-B Natriuret Pep 1205 pg/mL (0-900) H 07/13/18 14:29 Triglycerides 97 mg/dL (2-149) 07/13/18 16:14 Cholesterol 156 mg/dL (50-199) 07/13/18 16:14 LDL Cholesterol Direct 105 mg/dL (50-130) 07/13/18 16:14 HDL Cholesterol 40 mg/dL (40-59) 07/13/18 16:14 Cholesterol/HDL Ratio 3.90 % 07/13/18 16:14 TSH 1.720 mlU/mL (0.270-4.200) 07/13/18 14:29 Free T4 1.16 ng/dL (0.76-1.46) 07/13/18 14:29 Nutrition/Malnutrition Assess - Dietary Evaluation Nutrition/Malnutrition Findings: Nutrition Notes Start: 07/14/18 11:32 Freq: Status: Active Protocol: Document 07/14/18 11:32 AC (Rec: 07/14/18 11:33 AC [id number]) Nutrition Notes 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 Nutrition Intervention Follow-Up By: 07/18/18 Additional Comments F/U: intakes, need for assessment
[2018-07-14] MEDS: COREG PO SCH ×2 (12:54→22:18)
[2018-07-14] MEDS: IMDUR PO SCH (12:54)
[2018-07-14] MEDS: ZESTRIL PO SCH (12:55)
[2018-07-14] MEDS: BABY ASPIRIN PO SCH (12:55)
[2018-07-14] MEDS: HumuLIN R SUB-Q SCH ×2 (18:00→22:18)
--- NOTE | 2018-07-14 22:33 | Progress Note ---
Assessment and Plan (1) CHF (congestive heart failure) Echo reviewed Patient has a known ischemic cardiomyopathy with EF 30-35% Continue medical therapy with BB and ACEi Currently appears euvolemic by phyical exam strict I/O, daily weight gentle diuresis as needed (2) Chest pain patient had a LHC 05/25 that showed patent LM, LAD and LCx. Patient has an occl uded RCA in the midsegment that is filled distally via left to right collaterals No further workup at this time Maximize medical therapy for coronary disease If the patient has chest pain on maximal medical therapy, then would consider for DIAMOND CLEANER of RCA (3) Diabetes management per primary (4) HTN (hypertension) Maximize medical therapy for blood pressure (5) HLD (hyperlipidemia) high intensity statin Subjective Date of service: 07/15/18 Interval history: No acute events. Resting comfortably. No chest pain or SOB. Objective Vital Signs Temp Pulse Resp BP BP Pulse Ox 07/14/18 21:20 100 07/14/18 19:46 54 L 100 07/14/18 19:45 97.4 F L 55 L 18 137/86 90 07/14/18 17:32 75 20 112/57 96 07/14/18 16:20 98.0 F 55 L 20 124/78 96 07/14/18 12:55 62 134/88 07/14/18 12:54 62 134/88 07/14/18 12:28 98.6 F 62 20 134/88 97 07/14/18 07:47 97.9 F 83 20 163/116 97 07/14/18 05:18 97.9 F 80 20 117/87 92 07/14/18 04:21 50 L 07/14/18 03:31 72 161/89 95 07/14/18 03:26 72 161/89 07/13/18 23:17 72 18 168/98 95 - Physical Examination HEENT: Positive: PERRL, EOMI Neuro: Positive: Grossly Intact Abdomen: Positive: Soft, Active Bowel Sounds Extremities: Present: normal. Absent: edema - Labs and Meds Comprehensive Metabolic Panel 07/14/18 Range/Units 05:40 Sodium 138 (137-145) mmol/L Potassium 3.2 L (3.6-5.0) mmol/L Chloride 100.6 (98-107) mmol/L Carbon Dioxide 27 (22-30) mmol/L BUN 8 L (9-20) mg/dL Creatinine 0.6 L (0.8-1.5) mg/dL Glucose 138 H (75-100) mg/dL Calcium 8.2 L (8.4-10.2) mg/dL
[2018-07-15] MEDS: NITRO-BID 2% TP SCH ×2 (05:28→10:13)
[2018-07-15 08:10] VITALS: BP 135/107
--- NOTE | 2018-07-15 08:58 | Discharge Summary ---
Providers - Providers Date of Admission: 07/13/18 15:59 Date of discharge: 07/15/18 Attending physician: SHANELL DAILY 07/13/18 Consult to Cardiac Rehabilitation [CONS] Routine Reason For Exam: Phase I 07/13/18 15:59 Consult to Physician [CONS] Routine Comment: Consulting Provider: ANKIT VALADEZ Physician Instructions: Reason For Exam: chf Primary care physician: [facility], Hospitalization Reason for admission: cp Condition: Fair Hospital course: 63 YO Male with HTN, Systolic CHF, DM, HLD, CAD S/P Stent Placement, Obesity presented to ED for evaluation of chest pain, which he described as a "tingling" sensation, over the past 1 day with worsening symptoms over the past 6 hours prior to admission. Pt stated that pain was 6-7/10, Substernal, Localized to the left chest, lasted for over 10 minutes which prompted patient to come to ED. Pt acknowledged decreased exercise tolerance, Orthopnea/PND, dypsnea on exertion and denied palpitations, shortness of breath, dizziness or syncope. The patient was admitted with diagnosis of chest pain. Cardiology was consulted and repor jeffry patient had a LHC 05/25 that showed patent LM, LAD and LCx. Patient has an occluded RCA in the midsegment that is filled distally via left to right collaterals. Cardiology recommended no further workup at this time and to continue maximizing medical therapy for coronary disease. Continue medical therapy with beta marcella and REGULO inhibitor. Cardiology felt patient was euvolemic by exam and the chronic systolic heart failure with a baseline and compensated. Cardiac isoenzymes remain negative and EKG with no acute changes. Telemetry monitoring was unremarkable. Therefore, patient is felt to have received maximal hospital benefit for discharge. Dedicated discharge time 32 minutes. Disposition: - TO HOME OR SELFCARE Time spent for discharge: 32 - Discharge Diagnoses (1) CHF (congestive heart failure) Status: Acute Qualifiers: Heart failure type: systolic Heart failure chronicity: acute on chronic Qualified Code(s): I50.23 - Acute on chronic systolic (congestive) heart failure (2) Chest pain Status: Acute (3) HLD (hyperlipidemia) Status: Acute Qualifiers: Hyperlipidemia type: mixed hyperlipidemia Qualified Code(s): E78.2 - Mixed hyperlipidemia (4) Diabetes Status: Acute (5) GERD (gastroesophageal reflux disease) Status: Acute (6) HTN (hypertension) Status: Acute Qualifiers: Hypertension type: essential hypertension Qualified Code(s): I10 - Essential (primary) hypertension (7) Hx of heart artery stent Status: Acute (8) Ischemic cardiomyopathy Status: Acute Core Measure Documentation - Palliative Care Palliative Care/ Comfort Measures: Not Applicable - Core Measures Any of the following diagnoses?: heart failure, none - Heart Failure Discharge Requirements REGULO/ARB for LVSD if EF <40%: Yes Beta marcella at discharge: Yes Exam - Constitutional Vitals: Temp Pulse Resp BP Pulse Ox 97.9 F 91 H 18 135/107 95 07/15/18 08:00 07/15/18 08:05 07/15/18 08:00 07/15/18 08:00 07/15/18 08:05 General appearance: Present: no acute distress, well-nourished - EENT Eyes: Present: PERRL ENT: hearing intact, clear oral mucosa - Neck Neck: Present: supple, normal ROM - Respiratory Respiratory effort: normal Respiratory: bilateral: CTA - Cardiovascular Heart Sounds: Present: S1 & S2. Absent: rub, click - Extremities Extremities: pulses symmetrical, No edema Peripheral Pulses: within normal limits - Abdominal General gastrointestinal: Present: soft, non-tender, non-distended, normal bowel sounds Male genitourinary: Present: normal - Integumentary Integumentary: Present: clear, warm, dry - Musculoskeletal Musculoskeletal: gait normal, strength equal bilaterally - Psychiatric Psychiatric: appropriate mood/affect, intact judgment & insight - Neurologic Neurologic: CNII-XII intact, moves all extremities Plan Activity: no restrictions Weight Bearing Status: Full Weight Bearing Diet: diabetic [facility] - 3-5 Days MAGDA GUNTER MD [Staff Physician] - 7 Days Prescriptions: Aspirin [Adult Low Dose Aspirin EC] 81 mg PO DAILY #30 tablet. glipiZIDE [glipiZIDE XL] 10 mg PO QDAY #30 tab.er.24 ISOSORBIDE MONOnitrate [Imdur ER] 30 mg PO DAILY #30 tab.er.24h Potassium Chloride [Klor-Con M10] 10 meq PO AC #30 tab.er.prt Furosemide [Lasix TAB] 40 mg PO QDAY #30 tablet Metoprolol [Lopressor TAB] 50 mg PO DAILY #30 tablet amLODIPine [Norvasc] 5 mg PO DAILY #30 tablet Clopidogrel [Plavix] 75 mg PO QDAY #30 tablet Pravastatin [Pravachol] 20 mg PO QHS #30 tablet Lisinopril [Zestril TAB] 2.5 mg PO QDAY #30 tablet
[2018-07-15] MEDS: HumuLIN R SUB-Q SCH (09:34)
[2018-07-15] MEDS ORDERED: COREG PO SCH (10:00)
[2018-07-15] MEDS: BABY ASPIRIN PO SCH (10:14)
[2018-07-15] MEDS: IMDUR PO SCH (10:14)
[2018-07-15] MEDS: ZESTRIL PO SCH (10:14)
== END 2018-07-15 11:40 | disposition home or self-care (01) | DRG 293 ==
LOC: ED 12:58 → 4A 15:59
PROVIDERS: ADMIT Internal Medicine; ATTEND Hospitalist
DX: I11.0 Hypertensive heart disease with heart failure (principal); I50.23 Acute on chronic systolic (congestive) heart failure; E11.9 Type 2 diabetes mellitus without complications; I25.5 Ischemic cardiomyopathy; E66.9 Obesity, unspecified; I25.10 Atherosclerotic heart disease of native coronary artery without angina pectoris; E78.2 Mixed hyperlipidemia; I48.91 Unspecified atrial fibrillation; K21.9 Gastro-esophageal reflux disease without esophagitis; Z82.49 Family history of ischemic heart disease and other diseases of the circulatory system; Z83.3 Family history of diabetes mellitus; Z95.5 Presence of coronary angioplasty implant and graft; Z68.33 Body mass index [BMI] 33.0-33.9, adult; Z79.82 Long term (current) use of aspirin; Z79.899 Other long term (current) drug therapy
CPT/HCPCS: 36415; 71045; 80048; 80061; 82550; 82553; 82962; 83735; 83880; 84439; 84443; 84484; 85025; 85379; 85610; 85730; 93005; 93010; 94760; G0378; A9270-GY; J1815

== ENCOUNTER 2018-09-11 08:32 | Day surgery (SDC) | payer MEDICAID ==
[2018-09-11 08:07] LABS: BUN/Creatinine Ratio 16; Blood Urea Nitrogen 13 mg/dL (9-20); Calcium 8.3 mg/dL (8.4-10.2); Hemolysis Index 0
[2018-09-11 08:23] LABS: INR 0.89 (0.87-1.13)
[~2018-09-11 08:32] MED LIST: BABY ASPIRIN PO SCH; CALAN ONE; HALFPRIN EC PO ONE; HEPARIN/NS 5000 UNIT/500ML(CATH LAB) 1,000 ML IR ONE; NACL 0.9% 500 ML 500 ML IV SCH; NACL 0.9% 500 ML 500 ML ONE; NITROGLYCERIN SYRINGE 3 ML ONE; XYLOCAINE 2% INFILTRATI ONE
[2018-09-11] MEDS ORDERED: SUBLIMAZE ONE (09:03)
[2018-09-11] MEDS ORDERED: VERSED ONE (09:03)
[2018-09-11] MEDS: HEPARIN 10,000 UNITS/10 ML ONE ×2 (09:12→09:20)
[2018-09-11 09:37] LABS: Hematocrit 41.1 % (35.5-45.6); Hemoglobin 13.9 gm/dl (11.8-15.2); Mean Corpuscular HGB Conc 34 % (32-34); Mean Corpuscular Volume 92 fl (84-94); Platelet Count 280 K/mm3 (140-440); Red Blood Count 4.47 M/mm3 (3.65-5.03); Red Cell Distribution Width 13.9 % (13.2-15.2)
[2018-09-11] MEDS ORDERED: HEPARIN 10,000 UNITS/10 ML ONE (09:46)
[2018-09-11] MEDS ORDERED: APRESOLINE IV NR (10:06)
--- NOTE | 2018-09-11 11:06 | Short Stay Summary ---
Short Stay Documentation Date of service: 09/11/18 - History H&P: obtained from office - Allergies and Medications Current Medications: Allergies No Known Allergies Allergy (Verified 07/13/18 13:51) Home Medications Medication Instructions Recorded Confirmed Last Taken Type Metformin HCl [Glumetza] 1,000 mg PO BID 08/26/13 09/11/18 09/10/18 History Aspirin [Adult Low Dose Aspirin EC] 81 mg PO DAILY #30 tablet. 07/15/18 09/11/18 09/11/18 07:10 Rx Clopidogrel [Plavix] 75 mg PO QDAY #30 tablet 07/15/18 09/11/18 09/10/18 Rx Furosemide [Lasix TAB] 40 mg PO QDAY #30 tablet 07/15/18 09/11/18 09/10/18 Rx Lisinopril [Zestril TAB] 2.5 mg PO QDAY #30 tablet 07/15/18 09/11/18 Unknown Rx Pravastatin [Pravachol] 20 mg PO QHS #30 tablet 07/15/18 09/11/18 09/10/18 Rx amLODIPine [Norvasc] 5 mg PO DAILY #30 tablet 07/15/18 09/11/18 09/10/18 Rx glipiZIDE [glipiZIDE XL] 10 mg PO QDAY #30 tab.er.24 07/15/18 09/11/18 09/10/18 Rx Carvedilol [Coreg] 3.125 mg PO BID 09/11/18 09/11/18 09/10/18 History ISOSORBIDE MONOnitrate [Imdur ER] 30 mg PO DAILY 09/11/18 09/11/18 09/10/18 History Lisinopril [Zestril TAB] 10 mg PO QDAY 09/11/18 09/11/18 09/10/18 History Metoprolol Xl [Metoprolol 50 mg PO QDAY 09/11/18 09/11/18 09/10/18 History SUCCINATE ER TAB] Potassium Chloride [Klor-Con M10] 10 meq PO DAILY 09/11/18 09/11/18 Unknown History Active Medications Aspirin (Baby Aspirin) 81 mg PO QDAY VERNA Hydralazine HCl (Apresoline) 10 mg IV ONCE NR Stop: 09/11/18 11:06 Last Admin: 09/11/18 10:21 Dose: 10 mg Documented by: Sodium Chloride (Nacl 0.9% 500 Ml) 500 mls @ 50 mls/hr IV DIRECT VERNA Stop: 09/11/18 17:59 Last Admin: 09/11/18 07:45 Dose: 50 mls/hr Documented by: - Brief post op/procedure progress note Date of procedure: 09/11/18 Pre-op diagnosis: CAD; abnormal stress test Post-op diagnosis: same Procedure: C - see dictated cath report Anesthesia: local Estimated blood loss: none Condition: stable - Disposition Condition at discharge: Stable Disposition: [id number]/[id number] - Discharge Diagnoses (1) CAD (coronary artery disease) Status: Chronic (2) Stented coronary artery Status: Chronic (3) Cardiomyopathy Status: Chronic (4) Diabetes Status: Chronic (5) HLD (hyperlipidemia) Status: Chronic Qualifiers: Short Stay Discharge Plan Wound: open to air, keep clean and dry, per your surgeon's advice Follow up with: MILI BUTLER MD [Primary Care Provider] - 7 Days MARIAM GLOVER MD [Staff Physician] - 7 Days
[2018-09-11 11:21] VITALS: BP 159/92
[2018-09-11 11:58] LABS: Band Neutrophils # (Manual) 0.1 K/mm3; Total Cells Counted 100
[2018-09-11 11:59] LABS: Platelet Estimate Consistent w Auto; RBC Morphology Normal
--- NOTE | 2018-09-11 13:35 | Cardiac Catherization Report ---
CARDIAC CATHETERIZATION REFERRING PHYSICIAN: Ambrocio Merritt MD INDICATION FOR PROCEDURE: The patient is an exceedingly pleasant 63-year-old -Irish male with dyspnea on exertion, chest pain, abnormal stress test, referred for left heart catheterization. Risks, benefits, and potential alternatives were explained at length prior to obtaining informed consent. PROCEDURE IN DETAIL: The patient was brought to catheterization lab in a postabsorptive state, prepped and draped in sterile fashion. Harry's test in right hand was normal. A 2% lidocaine used to anesthetize the right wrist. A standard 6-Yi hydrophilic sheath used to cannulate the right radial artery via modified Seldinger technique. All exchanges were performed to exchange a J-tipped guidewire. JL3.5 catheter used to engage the left main. No dampening or ventricularization. Cineangiography performed in all projections. JR4 catheter used to cross the aortic valve under fluoroscopic guidance. Left ventriculography performed in 30 GALVEZ and 30 PERUVIAN projections via hand injections, catheter flushed. Manual pullback performed with continuous pressure monitoring. Catheter used to engage the right coronary. No dampening or ventricularization. Cineangiography performed in all projections. DATA: Aortic pressure is 140/90, LV pressure is 140. LVP of 15 mmHg. Left ventriculography reveals moderate severe global left ventricular hypokinesis, estimated ejection fraction of 35-40%. No evidence of aortic stenosis. CORONARY ANATOMY: This is a right dominant system. Right coronary has a known chronic total occlusion in the mid segment, extensive left to right collaterals identified. The left main appears to have an 80% eccentric distal stenosis. The left circumflex is a moderate sized vessel, courses AV groove, stent in the mid circumflex appears to be patent. LAD stent with minimal in-stent restenosis in the proximal and mid segment. At this point, we chose to proceed with intravascular ultrasound to confirm distal left main disease. Additional heparin is given used JL3.5 guide with Pep wire placed in the distal LAD. Multiple passes were made. IVUS of the LAD and left main are performed. IVUS reveals severe ostial LAD and distal left main disease. MLA less than 3 mm2. Final angiogram reveals no complications. The patient is clinically stable, chest pain free. I directly supervised the administration of moderate sedation from 9:09 a.m. to 9:40 a.m. CONCLUSIONS: 1. Severe epicardial coronary disease as aforementioned 80% angiographic distal left main, ostial LAD confirmed by intravascular ultrasound with minimal luminal area of less than 3 mm2, patent stent in the LAD and left circumflex, chronic total occlusion of the mid right coronary with extensive left to right collaterals. 2. Moderate to severe global left ventricular hypokinesis, estimated ejection fraction of 35-40%. The patient is clinically stable, chest pain free at this point given his disease symptoms test findings, we will transfer to [facility] for probable coronary bypass surgery. Risks, benefits, alternatives discussed with the patient and his mother. All questions and concerns were addressed. JOB# [id number] ELBA/LOREN
== END 2018-09-11 11:30 | disposition other institution (70) ==
LOC: CATHLABREC 08:32
PROVIDERS: ATTEND Internal Medicine
DX: I25.118 Atherosclerotic heart disease of native coronary artery with other forms of angina pectoris (principal); I11.0 Hypertensive heart disease with heart failure; I50.9 Heart failure, unspecified; E11.9 Type 2 diabetes mellitus without complications; I25.5 Ischemic cardiomyopathy; K21.9 Gastro-esophageal reflux disease without esophagitis; I48.91 Unspecified atrial fibrillation; E78.5 Hyperlipidemia, unspecified; E78.00 Pure hypercholesterolemia, unspecified; J44.9 Chronic obstructive pulmonary disease, unspecified; Z79.899 Other long term (current) drug therapy; Z79.82 Long term (current) use of aspirin; Z87.891 Personal history of nicotine dependence; Z79.84 Long term (current) use of oral hypoglycemic drugs; Z95.5 Presence of coronary angioplasty implant and graft; Z83.3 Family history of diabetes mellitus; Z98.890 Other specified postprocedural states
CPT/HCPCS: 36415; 80048; 85007; 85025; 85347; 85610; 85730; 92978; 93005; 93010; 93458; 99156; 99157; C1753; C1769; C1887; C1894; J0360; J1644; J2250; J3010; J7040; Q9967

== ENCOUNTER 2018-12-27 23:04 | Emergency (ER) | payer MEDICAID ==
[2018-12-28 00:52] LABS: Hematocrit 39.6 % (35.5-45.6); Mean Corpuscular HGB Conc 33 % (32-34); Mean Corpuscular Volume 86 fl (84-94); Platelet Count 325 K/mm3 (140-440); Red Blood Count 4.63 M/mm3 (3.65-5.03); Red Cell Distribution Width 17.4 % (13.2-15.2)
[2018-12-28 01:16] LABS: Alanine Aminotransferase 11 units/L (7-56); Albumin 3.8 g/dL (3.9-5); BUN/Creatinine Ratio 17; Blood Urea Nitrogen 17 mg/dL (9-20); Calcium 9.1 mg/dL (8.4-10.2); Hemolysis Index 6
[2018-12-28 01:48] LABS: Basophils % (Manual) 0 % (0.0-1.8); Platelet Estimate Consistent w Auto; RBC Morphology Normal; Total Cells Counted 100
[2018-12-28 02:09] LABS: Bilirubin,Urine NEG (Negative); Blood,Urine NEG (Negative); Color,Urine Yellow (Yellow); Mucus,Urine FEW /HPF; Protein,Urine <15 mg/dL mg/dL (Negative); WBC,Urine < 1.0 /HPF (0.0-6.0)
--- NOTE | 2018-12-28 04:29 | Cat Scan Report ---
CT head/brain wo con INDICATION / CLINICAL INFORMATION: Weakness.. TECHNIQUE: All CT scans at this location are performed using CT dose reduction for ALARA by means of automated e xposure control. COMPARISON: None available. FINDINGS: The ventricular system is normal in size and configuration. There are mild patchy small vessel ischem ic changes, predominantly in the periventricular white matter bilaterally. No discrete focal lesion o r mass effect is seen. There is no evidence of intracranial hemorrhage or major vessel occlusion. The calvarium is intact. The visualized paranasal sinuses and mastoid air cells are clear. IMPRESSION: Small vessel ischemic changes bilaterally. Signer Name: Gael Moore MD Signed: 12/28/2018 4:25 AM Workstation Name: [id number]
[2018-12-28 05:17] VITALS: BP 147/92
--- NOTE | 2018-12-28 05:18 | Emergency Department Report ---
- General Chief complaint: Weakness Stated complaint: FATIGUE Time Seen by Provider: 12/28/18 02:27 Source: patient Mode of arrival: Ambulatory Limitations: No Limitations - History of Present Illness Severity scale (0 -10): 0 - Related Data Home Medications Medication Instructions Recorded Confirmed Last Taken Metformin HCl [Glumetza] 1,000 mg PO BID 08/26/13 09/11/18 09/10/18 Carvedilol [Coreg] 3.125 mg PO BID 09/11/18 09/11/18 09/10/18 ISOSORBIDE MONOnitrate [Imdur ER] 30 mg PO DAILY 09/11/18 09/11/18 09/10/18 Lisinopril [Zestril TAB] 10 mg PO QDAY 09/11/18 09/11/18 09/10/18 Metoprolol Xl [Metoprolol 50 mg PO QDAY 09/11/18 09/11/18 09/10/18 SUCCINATE ER TAB] Potassium Chloride [Klor-Con M10] 10 meq PO DAILY 09/11/18 09/11/18 Unknown Previous Rx's Medication Instructions Recorded Last Taken Type Aspirin [Adult Low Dose Aspirin EC] 81 mg PO DAILY #30 tablet. 07/15/18 09/11/18 07:10 Rx Clopidogrel [Plavix] 75 mg PO QDAY #30 tablet 07/15/18 09/10/18 Rx Furosemide [Lasix TAB] 40 mg PO QDAY #30 tablet 07/15/18 09/10/18 Rx Lisinopril [Zestril TAB] 2.5 mg PO QDAY #30 tablet 07/15/18 Unknown Rx Pravastatin [Pravachol] 20 mg PO QHS #30 tablet 07/15/18 09/10/18 Rx amLODIPine [Norvasc] 5 mg PO DAILY #30 tablet 07/15/18 09/10/18 Rx glipiZIDE [glipiZIDE XL] 10 mg PO QDAY #30 tab.er.24 07/15/18 09/10/18 Rx Allergies Allergy/AdvReac Type Severity Reaction Status Date / Time No Known Allergies Allergy Verified 07/13/18 13:51 ED Review of Systems ROS: Stated complaint: FATIGUE Other details as noted in HPI ED Past Medical Hx - Past Medical History Previous Medical History?: Yes Hx Hypertension: Yes Hx Heart Attack/AMI: No Hx Congestive Heart Failure: Yes Hx Diabetes: Yes Hx Deep Vein Thrombosis: No Hx Pulmonary Embolism: No Hx GERD: Yes Hx Liver Disease: No Hx Asthma: No Hx COPD: Yes Hx Tuberculosis: No Hx HIV: No Additional medical history: Cardiac stent, high cholesterol - Surgical History Past Surgical History?: Yes Hx Coronary Stent: Yes Hx Pacemaker: No Hx Internal Defibrillator: No Additional Surgical History: CABG - Social History Smoking Status: Current Every Day Smoker Substance Use Type: None - Medications Home Medications: Home Medications Medication Instructions Recorded Confirmed Last Taken Type Metformin HCl [Glumetza] 1,000 mg PO BID 08/26/13 09/11/18 09/10/18 History Aspirin [Adult Low Dose Aspirin EC] 81 mg PO DAILY #30 tablet. 07/15/18 09/11/18 09/11/18 07:10 Rx Clopidogrel [Plavix] 75 mg PO QDAY #30 tablet 07/15/18 09/11/18 09/10/18 Rx Furosemide [Lasix TAB] 40 mg PO QDAY #30 tablet 07/15/18 09/11/18 09/10/18 Rx Lisinopril [Zestril TAB] 2.5 mg PO QDAY #30 tablet 07/15/18 09/11/18 Unknown Rx Pravastatin [Pravachol] 20 mg PO QHS #30 tablet 07/15/18 09/11/18 09/10/18 Rx amLODIPine [Norvasc] 5 mg PO DAILY #30 tablet 07/15/18 09/11/18 09/10/18 Rx glipiZIDE [glipiZIDE XL] 10 mg PO QDAY #30 tab.er.24 07/15/18 09/11/18 09/10/18 Rx Carvedilol [Coreg] 3.125 mg PO BID 09/11/18 09/11/18 09/10/18 History ISOSORBIDE MONOnitrate [Imdur ER] 30 mg PO DAILY 09/11/18 09/11/18 09/10/18 History Lisinopril [Zestril TAB] 10 mg PO QDAY 09/11/18 09/11/18 09/10/18 History Metoprolol Xl [Metoprolol 50 mg PO QDAY 09/11/18 09/11/18 09/10/18 History SUCCINATE ER TAB] Potassium Chloride [Klor-Con M10] 10 meq PO DAILY 09/11/18 09/11/18 Unknown History ED Physical Exam - General Limitations: No Limitations ED Course Vital Signs 12/27/18 12/28/18 23:57 05:16 Temperature 98.4 F Pulse Rate 71 84 Respiratory 18 20 Rate Blood Pressure 164/101 Blood Pressure 147/92 [Right] O2 Sat by Pulse 100 98 Oximetry ED Medical Decision Making - Lab Data Result diagrams: 12/28/18 00:29 12/28/18 00:29 Critical care attestation.: If time is entered above; I have spent that time in minutes in the direct care of this critically ill patient, excluding procedure time. ED Disposition Clinical Impression: Weakness Disposition: [id number]-01 TO HOME OR SELFCARE Is pt being admited?: No Does the pt Need Aspirin: No Condition: Stable Instructions: Weakness (ED) Referrals: PRIMARY CARE, [Primary Care Provider] - 3-5 Days
== END 2018-12-28 05:25 | disposition home or self-care (01) ==
LOC: ED 23:04
DX: R53.1 Weakness (principal); I11.0 Hypertensive heart disease with heart failure; I50.9 Heart failure, unspecified; K21.9 Gastro-esophageal reflux disease without esophagitis; J44.9 Chronic obstructive pulmonary disease, unspecified; E78.00 Pure hypercholesterolemia, unspecified; E11.9 Type 2 diabetes mellitus without complications; F17.200 Nicotine dependence, unspecified, uncomplicated; Z79.84 Long term (current) use of oral hypoglycemic drugs; Z79.899 Other long term (current) drug therapy; Z79.82 Long term (current) use of aspirin; Z95.1 Presence of aortocoronary bypass graft
CPT/HCPCS: 36415; 70450; 80053; 81001; 85007; 85025; 99284

== ENCOUNTER 2019-02-06 09:52 | Emergency (ER) | payer MEDICAID ==
[2019-02-06] MEDS ORDERED: FUROSEMIDE 40 MG/4 ML INJ IV ONE (10:16)
[2019-02-06] MEDS ORDERED: hydrALAZINE 20 MG/1 ML INJ IV ONE (10:16)
--- NOTE | 2019-02-06 10:17 | Emergency Department Report ---
ED Shortness of Breath HPI - General Chief Complaint: Dyspnea/Respdistress Stated Complaint: KENNY Time Seen by Provider: 02/06/19 10:08 Source: patient Mode of arrival: Ambulatory Limitations: No Limitations - History of Present Illness Initial Comments: pt is a 63 yo AA male who comes to ER co inc SOB over the last few days. He has been out of his lasix for 2 weeks. He denies chest pain. SOB is worse with activity and when lying flat. Pt is welll known to cards here for he is S/P [place] in September. He had CABG done at [facility] with reports per cards of normal LVEF. PMH CABG HTN DM HPLD OBESE denies cig/drugs/etoh mother alive dad apr. unknown cause. Rx amio plavix statin metoformin K norvasc coreg lasix - out Pt has a bag of meds with him and I've gone thru them. There is no asa in the bag. Pt has appnt for Monday with cards but got too SOB today so he came to ER. He had called the office but they would not refill his lasix. MD Complaint: shortness of breath -: Gradual Consistency: constant Improves With: upright position Worsens With: lying flat, exertion Known History Of: congestive heart failure, diabetes, other Context: medication noncompliance Associated Symptoms: denies other symptoms - Related Data Home Medications Medication Instructions Recorded Confirmed Last Taken Metformin HCl [Glumetza] 1,000 mg PO BID 08/26/13 02/06/19 02/05/19 Carvedilol [Coreg] 3.125 mg PO BID 09/11/18 02/06/19 02/05/19 Potassium Chloride [Klor-Con M10] 20 meq PO DAILY 09/11/18 02/06/19 02/05/19 Previous Rx's Medication Instructions Recorded Last Taken Type Aspirin [Adult Low Dose Aspirin EC] 81 mg PO DAILY #30 tablet. 07/15/18 02/05/19 Rx Clopidogrel [Plavix] 75 mg PO QDAY #30 tablet 07/15/18 02/05/19 Rx Pravastatin [Pravachol] 20 mg PO QHS #30 tablet 07/15/18 02/05/19 Rx amLODIPine [Norvasc] 5 mg PO DAILY #30 tablet 07/15/18 02/05/19 Rx Apixaban [Eliquis starter pack] 5 mg PO BID #60 tab 02/06/19 Unknown Rx Aspirin [Adult Aspirin] 81 mg PO DAILY #30 tablet. 02/06/19 Unknown Rx Furosemide [Lasix TAB] 40 mg PO BID #60 tablet 02/06/19 Unknown Rx Allergies Allergy/AdvReac Type Severity Reaction Status Date / Time No Known Allergies Allergy Verified 07/13/18 13:51 ED Review of Systems ROS: Stated complaint: KENNY Other details as noted in HPI Comment: All other systems reviewed and negative ED Past Medical Hx - Past Medical History Previous Medical History?: Yes Hx Hypertension: Yes Hx CVA: No Hx Heart Attack/AMI: Yes Hx Congestive Heart Failure: Yes Hx Diabetes: Yes Hx Deep Vein Thrombosis: No Hx Pulmonary Embolism: No Hx GERD: Yes Hx Liver Disease: No Hx Renal Disease: No Hx of Cancer: No Hx Sickle Cell Disease: No Hx Arthritis: No Hx Headaches / Migraines: No Hx Seizures: No Hx Kidney Stones: No Hx Psychiatric Treatment: No Hx Asthma: No Hx COPD: Yes Hx Tuberculosis: No Hx Dementia: No Hx HIV: No Additional medical history: Cardiac stent, high cholesterol - Surgical History Past Surgical History?: Yes Hx Coronary Stent: Yes Hx Open Heart Surgery: Yes Hx Pacemaker: No Hx Internal Defibrillator: No Hx Cholecystectomy: No Hx Appendectomy: No Hx Breast Surgery: No Additional Surgical History: CABG - Family History Family history: no significant - Social History Smoking Status: Current Every Day Smoker Substance Use Type: None - Medications Home Medications: Home Medications Medication Instructions Recorded Confirmed Last Taken Type Metformin HCl [Glumetza] 1,000 mg PO BID 08/26/13 02/06/19 02/05/19 History Aspirin [Adult Low Dose Aspirin EC] 81 mg PO DAILY #30 tablet. 07/15/18 02/06/19 02/05/19 Rx Clopidogrel [Plavix] 75 mg PO QDAY #30 tablet 07/15/18 02/06/19 02/05/19 Rx Pravastatin [Pravachol] 20 mg PO QHS #30 tablet 07/15/18 02/06/19 02/05/19 Rx amLODIPine [Norvasc] 5 mg PO DAILY #30 tablet 07/15/18 02/06/19 02/05/19 Rx Carvedilol [Coreg] 3.125 mg PO BID 09/11/18 02/06/19 02/05/19 History Potassium Chloride [Klor-Con M10] 20 meq PO DAILY 09/11/18 02/06/19 02/05/19 History Apixaban [Eliquis starter pack] 5 mg PO BID #60 tab 02/06/19 Unknown Rx Aspirin [Adult Aspirin] 81 mg PO DAILY #30 tablet. 02/06/19 Unknown Rx Furosemide [Lasix TAB] 40 mg PO BID #60 tablet 02/06/19 Unknown Rx ED Physical Exam - General Limitations: No Limitations General appearance: alert - Head Head exam: Present: normocephalic - Eye Eye exam: Present: PERRL, EOMI - ENT ENT exam: Present: mucous membranes moist - Neck Neck exam: Present: normal inspection - Respiratory Respiratory exam: Present: normal lung sounds bilaterally, other (b cr ) - Cardiovascular Cardiovascular Exam: Present: regular rate, other (a flutter on monitor) - GI/Abdominal GI/Abdominal exam: Present: soft, other (obese/round) - Rectal Rectal exam: Present: deferred - Extremities Exam Extremities exam: Present: full ROM, normal capillary refill, pedal edema - Back Exam Back exam: Present: normal inspection - Neurological Exam Neurological exam: Present: alert, oriented X3, CN II-XII intact - Psychiatric Psychiatric exam: Present: normal affect, normal mood - Skin Skin exam: Present: warm, dry, intact ED Course Vital Signs 02/06/19 02/06/19 02/06/19 09:57 11:16 11:22 Temperature 97.8 F Pulse Rate 71 71 Respiratory 18 12 Rate Blood Pressure 154/71 Blood Pressure 199/138 154/87 [Right] O2 Sat by Pulse 98 95 Oximetry 02/06/19 12:55 Temperature Pulse Rate 76 Respiratory 18 Rate Blood Pressure Blood Pressure 138/89 [Right] O2 Sat by Pulse 100 Oximetry ED Medical Decision Making - Lab Data Result diagrams: 02/06/19 10:19 02/06/19 10:19 - EKG Data -: EKG Interpreted by Me - EKG Data Interpretation: no acute changes - Radiology Data Radiology results: report reviewed, image reviewed - Medical Decision Making Lab Results 02/06/19 02/06/19 02/06/19 Range/Units 10:19 10:19 10:19 WBC 6.1 (4.5-11.0) K/mm3 RBC 4.79 (3.65-5.03) M/mm3 Hgb 13.6 (11.8-15.2) gm/dl Hct 41.0 (35.5-45.6) % MCV 86 (84-94) fl MCH 28 (28-32) pg MCHC 33 (32-34) % RDW 19.1 H (13.2-15.2) % Plt Count 325 (140-440) K/mm3 Lymph % (Auto) 31.0 (13.4-35.0) % [place] % (Auto) 8.3 H (0.0-7.3) % Eos % (Auto) 1.2 (0.0-4.3) % Baso % (Auto) 1.0 (0.0-1.8) % Lymph # 1.9 (1.2-5.4) K/mm3 [place] # 0.5 (0.0-0.8) K/mm3 Eos # 0.1 (0.0-0.4) K/mm3 Baso # 0.1 (0.0-0.1) K/mm3 Seg Neutrophils % 58.5 (40.0-70.0) % Seg Neutrophils # 3.5 (1.8-7.7) K/mm3 PT 13.1 (12.2-14.9) Sec. INR 1.02 (0.87-1.13) APTT 27.4 (24.2-36.6) Sec. Sodium 140 (137-145) mmol/L Potassium 3.9 (3.6-5.0) mmol/L Chloride 103.2 (98-107) mmol/L Carbon Dioxide 23 (22-30) mmol/L Anion Gap 18 mmol/L BUN 11 (9-20) mg/dL Creatinine 0.8 (0.8-1.5) mg/dL Estimated GFR > 60 ml/min BUN/Creatinine Ratio 14 % Glucose 202 H (75-100) mg/dL Calcium 8.9 (8.4-10.2) mg/dL Total Bilirubin 0.50 (0.1-1.2) mg/dL AST 11 (5-40) units/L ALT 12 (7-56) units/L Alkaline Phosphatase 81 (35-129) units/L Troponin T < 0.010 (0.00-0.029) ng/mL NT-Pro-B Natriuret Pep (0-900) pg/mL Total Protein 7.3 (6.3-8.2) g/dL Albumin 4.3 (3.9-5) g/dL Albumin/Globulin Ratio 1.4 % Urine Color (Yellow) Urine Turbidity (Clear) Urine pH (5.0-7.0) Ur Specific [place] (1.003-1.030) Urine Protein (Negative) mg/dL Urine Glucose (UA) (Negative) mg/dL Urine Ketones (Negative) mg/dL Urine Blood (Negative) Urine Nitrite (Negative) Urine Bilirubin (Negative) Urine Urobilinogen (<2.0) mg/dL Ur Leukocyte Esterase (Negative) Urine WBC (Auto) (0.0-6.0) /HPF Urine RBC (Auto) (0.0-6.0) /HPF Urine Mucus /HPF 02/06/19 02/06/19 Range/Units 10:19 11:16 WBC (4.5-11.0) K/mm3 RBC (3.65-5.03) M/mm3 Hgb (11.8-15.2) gm/dl Hct (35.5-45.6) % MCV (84-94) fl MCH (28-32) pg MCHC (32-34) % RDW (13.2-15.2) % Plt Count (140-440) K/mm3 Lymph % (Auto) (13.4-35.0) % [place] % (Auto) (0.0-7.3) % Eos % (Auto) (0.0-4.3) % Baso % (Auto) (0.0-1.8) % Lymph # (1.2-5.4) K/mm3 [place] # (0.0-0.8) K/mm3 Eos # (0.0-0.4) K/mm3 Baso # (0.0-0.1) K/mm3 Seg Neutrophils % (40.0-70.0) % Seg Neutrophils # (1.8-7.7) K/mm3 PT (12.2-14.9) Sec. INR (0.87-1.13) APTT (24.2-36.6) Sec. Sodium (137-145) mmol/L Potassium (3.6-5.0) mmol/L Chloride (98-107) mmol/L Carbon Dioxide (22-30) mmol/L Anion Gap mmol/L BUN (9-20) mg/dL Creatinine (0.8-1.5) mg/dL Estimated GFR ml/min BUN/Creatinine Ratio % Glucose (75-100) mg/dL Calcium (8.4-10.2) mg/dL Total Bilirubin (0.1-1.2) mg/dL AST (5-40) units/L ALT (7-56) units/L Alkaline Phosphatase (35-129) units/L Troponin T (0.00-0.029) ng/mL NT-Pro-B Natriuret Pep 844.5 (0-900) pg/mL Total Protein (6.3-8.2) g/dL Albumin (3.9-5) g/dL Albumin/Globulin Ratio % Urine Color Yellow (Yellow) Urine Turbidity Clear (Clear) Urine pH 6.0 (5.0-7.0) Ur Specific [place] 1.016 (1.003-1.030) Urine Protein <15 mg/dl (Negative) mg/dL Urine Glucose (UA) 50 (Negative) mg/dL Urine Ketones Neg (Negative) mg/dL Urine Blood Neg (Negative) Urine Nitrite Neg (Negative) Urine Bilirubin Neg (Negative) Urine Urobilinogen < 2.0 (<2.0) mg/dL Ur Leukocyte Esterase Neg (Negative) Urine WBC (Auto) < 1.0 (0.0-6.0) /HPF Urine RBC (Auto) 2.0 (0.0-6.0) /HPF Urine Mucus Few /HPF Vital Signs 02/06/19 02/06/19 02/06/19 09:57 11:16 11:22 Temperature 97.8 F Pulse Rate 71 71 Respiratory 18 12 Rate Blood Pressure 154/71 Blood Pressure 199/138 154/87 [Right] O2 Sat by Pulse 98 95 Oximetry aflutter noted on admit 12 lead per pt he had irreg HR post op but it then was normal. He was started on amio. labs noted xray noted pt given 40 mg IV lasix and K in ER. Also given hydral IV x 1. Cardiology was consulted- Dr Merritt and Dr Gonzalez are aware of pt presentation to ER. Aware of aflutter CVR- Hzzp2Mmcg score 5. Pt will need triple therapy. Discussed ASA with pt; as well as adding eloquis; he is to continue his plavix. Pt is ok for dc home on asa, eloquis, and lasix 40mg BID. Pt is on daily K Pt is to see cards on Monday as scheduled Dr Bell aware of pt presentation. During ER stay pt has had no cp. He is responding well to lasix /hydral. afib CVR rate 55-70; no ectopy. Sandee explained the dc plan of care with the pt and he verbalizes understanding of the dc plan of care. He will get meds and see cards as scheduled. - Differential Diagnosis ro ACS/ro CHF/ ro afib/flutter RVR Critical care attestation.: If time is entered above; I have spent that time in minutes in the direct care of this critically ill patient, excluding procedure time. ED Disposition Clinical Impression: HTN (hypertension), CHF (congestive heart failure), Atrial flutter, Non- adherence to medical treatment Disposition: DC-01 TO HOME OR SELFCARE Is pt being admited?: No Does the pt Need Aspirin: No Condition: Stable Instructions: Heart Failure (ED), Hypertension (ED) Prescriptions: Aspirin [Adult Aspirin] 81 mg PO DAILY #30 tablet. Apixaban [Eliquis starter pack] 5 mg PO BID #60 tab Furosemide [Lasix TAB] 40 mg PO BID #60 tablet Referrals: PRIMARY CARE, [Primary Care Provider] - 3-5 Days MARLEY MERRITT MD [Staff Physician] - 3-5 Days MARIAM MERRITT MD [Staff Physician] - 3-5 Days Time of Disposition: 12:27
[2019-02-06 10:46] LABS: Basophils # (Auto) 0.1 K/mm3 (0.0-0.1); Eosinophils # (Auto) 0.1 K/mm3 (0.0-0.4); Eosinophils % (Auto) 1.2 % (0.0-4.3); Hemoglobin 13.6 gm/dl (11.8-15.2); Lymphocytes # (Auto) 1.9 K/mm3 (1.2-5.4); Mean Corpuscular HGB Conc 33 % (32-34); Mean Corpuscular Volume 86 fl (84-94); Monocytes # (Auto) 0.5 K/mm3 (0.0-0.8); Monocytes % (Auto) 8.3 % (0.0-7.3); Platelet Count 325 K/mm3 (140-440); Red Blood Count 4.79 M/mm3 (3.65-5.03); Red Cell Distribution Width 19.1 % (13.2-15.2)
[2019-02-06 10:54] LABS: INR 1.02 (0.87-1.13)
[2019-02-06 10:55] LABS: Partial Thromboplastin Time 27.4 Sec. (24.2-36.6)
[2019-02-06 11:11] LABS: Alanine Aminotransferase 12 units/L (7-56); Albumin 4.3 g/dL (3.9-5); BUN/Creatinine Ratio 14; Blood Urea Nitrogen 11 mg/dL (9-20); Calcium 8.9 mg/dL (8.4-10.2); Hemolysis Index 4
--- NOTE | 2019-02-06 11:13 | XRay Report ---
CHEST 1 VIEW INDICATION: Dyspnea. COMPARISON: 07/13/2018 FINDINGS: Support devices: None. Heart: Interval CABG changes are noted. Mild cardiomegaly is present which is slightly increased sinc e the previous exam. Lungs/Pleura: The lungs are clear. No infiltrate, pleural effusion or pneumothorax. Additional findings: None. IMPRESSION: Borderline heart size. Lungs clear. Signer Name: Arjun Leavitt Jr, MD Signed: 02/06/2019 11:09 AM Workstation Name: [id number]
[2019-02-06 11:21] LABS: Bilirubin,Urine NEG (Negative); Blood,Urine NEG (Negative); Color,Urine Yellow (Yellow); Mucus,Urine FEW /HPF; Protein,Urine <15 mg/dL mg/dL (Negative); Urobilinogen,Urine < 2.0 mg/dL (<2.0)
[2019-02-06 12:15] LABS: WBC,Urine < 1.0 /HPF (0.0-6.0)
[2019-02-06] MEDS ORDERED: POTASSIUM CHLORIDE ER 20 MEQ TAB PO ONE (12:28)
[2019-02-06] MEDS ORDERED: APIXABAN 5 MG TAB PO STA (12:36)
[2019-02-06 12:57] VITALS: BP 138/89
--- NOTE | 2019-02-06 12:57 | Event Note ---
Date: 02/06/19 Pt presented with c/o SOB for 2 days since running out of home lasix. He was given IV lasix in ED and states he is feeling much better. He is noted to be in AFlutter with CVR. [facility] records reviewed - pt experienced a bout of AFib following CABG which responded to IV amio and systemic AC was not initiated at that time due to brief post-operative duration (<24Hr) of AFib with no recurrence throughout remaining hospitalization. He was discharged home on PO amio 200mg daily. Pt may d/c from cardiology standpoint. We recommend initiating Eliquis 5mg BID in addition to home cardiac regimen. Cont home PO lasix 40mg BID. Follow up in our [place] office with Dr. Mouna Merritt on 02/08/2019 @ 3:15PM. Narda VILLALOBOS NP / DR. BLISS
== END 2019-02-06 13:04 | disposition home or self-care (01) ==
LOC: ED 09:52
DX: I11.0 Hypertensive heart disease with heart failure (principal); I50.9 Heart failure, unspecified; I48.92 Unspecified atrial flutter; E11.9 Type 2 diabetes mellitus without complications; E78.5 Hyperlipidemia, unspecified; E66.9 Obesity, unspecified; Z68.37 Body mass index [BMI] 37.0-37.9, adult; K21.9 Gastro-esophageal reflux disease without esophagitis; J44.9 Chronic obstructive pulmonary disease, unspecified; F17.200 Nicotine dependence, unspecified, uncomplicated; Z95.1 Presence of aortocoronary bypass graft; Z79.01 Long term (current) use of anticoagulants; Z79.899 Other long term (current) drug therapy; Z79.82 Long term (current) use of aspirin
CPT/HCPCS: 36415; 71045; 80053; 81001; 83880; 84484; 85025; 85610; 85730; 93005; 93010; 96374; 96375; 99284; J0360; J1940

== ENCOUNTER 2019-04-24 09:17 | Emergency (ER) | payer MEDICAID ==
[2019-04-24] MEDS ORDERED: ASPIRIN 325 MG TAB PO ONE (09:49)
--- NOTE | 2019-04-24 09:50 | Emergency Department Report ---
ED Chest Pain HPI - General Chief Complaint: Dyspnea/Respdistress Stated Complaint: SOB Time Seen by Provider: 04/24/19 09:48 Source: patient Mode of arrival: Ambulatory Limitations: No Limitations - History of Present Illness Initial Comments: 63 YO AA MALE COMES TO ER CO SOB AND LEF SWELLING. HE IS WELL KNOWN TO US AND HAS HAD CABG AT [facility] IN SEPTEMBER. HE IS FOLLOWED BY DR JOHNSTON IN THE OFFICE. PT REPORTS MED COMPLIANCE. HE DENIES CHEST PAIN PMH HPLD HTN GERD AFIB HF CATH 09-23 TVD--- SP CABG 09/23 RX METFORMIN ASA PLAVIX STATIN NORVASC K COREG ELIQUIS LASIX... PER EMR MD Complaint: chest pain -: Gradual Onset: during rest, during exertion Pain Location: substernal Quality: tightness, squeezing Consistency: intermittent Improves With: nothing Worsens With: nothing Treatments Prior to Arrival: none Aspirin use within the Past 7 Days: (1) Yes - Related Data On Oral Contraceptives: No Home Medications Medication Instructions Recorded Confirmed Last Taken Metformin HCl [Glumetza] 1,000 mg PO BID 08/26/13 02/06/19 02/05/19 Potassium Chloride [Klor-Con M10] 20 meq PO DAILY 09/11/18 02/06/19 02/05/19 carvediloL [Coreg] 3.125 mg PO BID 09/11/18 02/06/19 02/05/19 Previous Rx's Medication Instructions Recorded Last Taken Type Aspirin [Adult Low Dose Aspirin EC] 81 mg PO DAILY #30 tablet. 07/15/18 02/05/19 Rx Clopidogrel [Plavix] 75 mg PO QDAY #30 tablet 07/15/18 02/05/19 Rx Pravastatin [Pravachol] 20 mg PO QHS #30 tablet 07/15/18 02/05/19 Rx amLODIPine 5 mg PO DAILY #30 tablet 07/15/18 02/05/19 Rx Apixaban [Eliquis starter pack] 5 mg PO BID #60 tab 02/06/19 Unknown Rx Aspirin [Adult Aspirin] 81 mg PO DAILY #30 tablet. 02/06/19 Unknown Rx Furosemide [Lasix TAB] 40 mg PO BID #60 tablet 02/06/19 Unknown Rx Allergies Allergy/AdvReac Type Severity Reaction Status Date / Time No Known Allergies Allergy Verified 07/13/18 13:51 Heart Score - HEART Score History: Slightly suspicious EKG: Non-specific Age: 45-65 Risk factors: > 3 risk factors or hx of atherosclerotic disease Troponin: < normal limit HEART Score: 4 ED Review of Systems ROS: Stated complaint: SOB Other details as noted in HPI Comment: All other systems reviewed and negative ED Past Medical Hx - Past Medical History Previous Medical History?: Yes Hx Hypertension: Yes Hx CVA: No Hx Heart Attack/AMI: Yes Hx Congestive Heart Failure: Yes Hx Diabetes: Yes Hx Deep Vein Thrombosis: No Hx Pulmonary Embolism: No Hx GERD: Yes Hx Liver Disease: No Hx Renal Disease: No Hx Sickle Cell Disease: No Hx Arthritis: No Hx Headaches / Migraines: No Hx Seizures: No Hx Kidney Stones: No Hx Psychiatric Treatment: No Hx Asthma: No Hx COPD: Yes Hx Tuberculosis: No Hx Dementia: No Hx HIV: No Additional medical history: Cardiac stent, high cholesterol - Surgical History Past Surgical History?: Yes Hx Coronary Stent: Yes Hx Open Heart Surgery: Yes Hx Pacemaker: No Hx Internal Defibrillator: No Hx Cholecystectomy: No Hx Appendectomy: No Hx Breast Surgery: No Additional Surgical History: CABG - Family History Family history: no significant - Social History Smoking Status: Current Every Day Smoker Substance Use Type: None - Medications Home Medications: Home Medications Medication Instructions Recorded Confirmed Last Taken Type Metformin HCl [Glumetza] 1,000 mg PO BID 08/26/13 02/06/19 02/05/19 History Aspirin [Adult Low Dose Aspirin EC] 81 mg PO DAILY #30 tablet. 07/15/18 02/06/19 02/05/19 Rx Clopidogrel [Plavix] 75 mg PO QDAY #30 tablet 07/15/18 02/06/19 02/05/19 Rx Pravastatin [Pravachol] 20 mg PO QHS #30 tablet 07/15/18 02/06/19 02/05/19 Rx amLODIPine 5 mg PO DAILY #30 tablet 07/15/18 02/06/19 02/05/19 Rx Potassium Chloride [Klor-Con M10] 20 meq PO DAILY 09/11/18 02/06/19 02/05/19 History carvediloL [Coreg] 3.125 mg PO BID 09/11/18 02/06/19 02/05/19 History Apixaban [Eliquis starter pack] 5 mg PO BID #60 tab 10/02/19 Unknown Rx Aspirin [Adult Aspirin] 81 mg PO DAILY #30 tablet. 02/06/19 Unknown Rx Furosemide [Lasix TAB] 40 mg PO BID #60 tablet 02/06/19 Unknown Rx ED Physical Exam - General Limitations: No Limitations General appearance: alert, in no apparent distress - Head Head exam: Present: atraumatic, normocephalic - Eye Eye exam: Present: normal appearance - ENT ENT exam: Present: mucous membranes moist - Neck Neck exam: Present: normal inspection - Respiratory Respiratory exam: Present: normal lung sounds bilaterally, wheezes. Absent: respiratory distress - Cardiovascular Cardiovascular Exam: Present: regular rate, normal rhythm, bradycardia. Absent: systolic murmur, diastolic murmur, rubs, gallop - GI/Abdominal GI/Abdominal exam: Present: soft, normal bowel sounds - Rectal Rectal exam: Present: deferred - Extremities Exam Extremities exam: Present: pedal edema - Back Exam Back exam: Present: normal inspection - Neurological Exam Neurological exam: Present: alert, oriented X3 - Psychiatric Psychiatric exam: Present: normal affect, normal mood - Skin Skin exam: Present: warm, dry, intact, normal color. Absent: rash ED Course Vital Signs 04/24/19 04/24/19 04/24/19 09:21 10:10 10:46 Temperature 98.5 F Pulse Rate 57 L 54 L Respiratory 18 Rate Blood Pressure 175/92 149/80 O2 Sat by Pulse 91 99 Oximetry 04/24/19 04/24/19 04/24/19 11:00 11:16 11:47 Temperature Pulse Rate 54 L 56 L 56 L Respiratory 16 Rate Blood Pressure 144/90 152/98 O2 Sat by Pulse 97 Oximetry BRAIN score - Brain Score Age > 65: (0) No Aspirin use within the Past 7 Days: (1) Yes 3 or more CAD Risk Factors: (1) Yes 2 or more Angina events in past 24 hrs: (1) Yes Known CAD with more than 50% Stenosis: (1) Yes Elevated Cardiac Markers: (0) No ST Deviation Greater than 0.5mm: (0) No BRAIN Score: 4 ED Medical Decision Making - Lab Data Result diagrams: 04/24/19 09:56 04/24/19 09:56 - EKG Data EKG shows normal: sinus rhythm Rate: normal - EKG Data When compared to previous EKG there are: no significant change Interpretation: no acute changes, nonspecific ST-T wave yana - Radiology Data Radiology results: report reviewed, image reviewed - Medical Decision Making Labs 04/24/19 04/24/19 04/24/19 09:56 09:56 09:56 WBC 5.1 RBC 4.35 Hgb 13.5 Hct 39.3 MCV 90 MCH 31 MCHC 34 RDW 15.7 H Plt Count 300 Lymph % (Auto) 34.7 [place] % (Auto) 9.0 H Eos % (Auto) 1.5 Baso % (Auto) 0.7 Lymph # 1.8 [place] # 0.5 Eos # 0.1 Baso # 0.0 Add Manual Diff Complete Seg Neutrophils % 54.1 Nucleated RBC % Not Reportable Seg Neutrophils # 2.8 WBC Morphology Not Reportable Hypersegmented Neuts Not Reportable Hyposegmented Neuts Not Reportable Hypogranular Neuts Not Reportable Smudge Cells Not Reportable Toxic Granulation Not Reportable Toxic Vacuolation Not Reportable Dohle Bodies Not Reportable Pelger-Huet Anomaly Not Reportable Micheal Rods Not Reportable Platelet Estimate Not Reportable Clumped Platelets Not Reportable Plt Clumps, EDTA Not Reportable Large Platelets Not Reportable Giant Platelets Not Reportable Platelet Satelliting Not Reportable Plt Morphology Comment Not Reportable RBC Morphology Not Reportable Dimorphic RBCs Not Reportable Polychromasia Not Reportable Hypochromasia Not Reportable Poikilocytosis Not Reportable Anisocytosis Not Reportable Microcytosis Not Reportable Macrocytosis Not Reportable Spherocytes Not Reportable Pappenheimer Bodies Not Reportable Sickle Cells Not Reportable Target Cells Not Reportable Tear Drop Cells Not Reportable Ovalocytes Not Reportable Helmet Cells Not Reportable [place] Bodies Not Reportable Atkins Rings Not Reportable Hemanth Cells Not Reportable Bite Cells Not Reportable Crenated Cell Not Reportable Elliptocytes Not Reportable Acanthocytes (Spur) Not Reportable Rouleaux Not Reportable Hemoglobin C Crystals Not Reportable Schistocytes Not Reportable Malaria parasites Not Reportable Michael Bodies Not Reportable Hem Pathologist Commnt No PT 13.5 INR 1.02 APTT 39.2 H Sodium 143 Potassium 3.4 L Chloride 102.1 Carbon Dioxide 23 Anion Gap 21 BUN 13 Creatinine 0.9 Estimated GFR > 60 BUN/Creatinine Ratio 14 Glucose 135 H Calcium 8.7 Total Bilirubin 0.50 AST 13 ALT 13 Alkaline Phosphatase 69 Troponin T < 0.010 NT-Pro-B Natriuret Pep 897.4 Total Protein 7.6 Albumin 4.1 Albumin/Globulin Ratio 1.2 Vital Signs 04/24/19 04/24/19 04/24/19 09:21 10:10 10:46 Temperature 98.5 F Pulse Rate 57 L 54 L Respiratory 18 Rate Blood Pressure 175/92 149/80 O2 Sat by Pulse 91 99 Oximetry 04/24/19 04/24/19 04/24/19 11:00 11:16 11:47 Temperature Pulse Rate 54 L 56 L 56 L Respiratory 16 Rate Blood Pressure 144/90 152/98 O2 Sat by Pulse 97 Oximetry LABS NOTED K REPLACED LASIX IV X 1 GIVEN EKG NOTED XRAY NOTED DISCUSSED WITH [facility]. DR JOHNSTON WILL SEE IN 5 DAYS IN THE OFFICE. DC HOME WITH DC PLAN OF CARE. PT UNDERSTANDS HE NEEDS TO FOLLOW UP - Differential Diagnosis ro acs/decompensated hf Critical care attestation.: If time is entered above; I have spent that time in minutes in the direct care of this critically ill patient, excluding procedure time. ED Disposition Clinical Impression: Chest pain, Ischemic cardiomyopathy, Stented coronary artery, Hypokalemia, Edema Disposition: DC-01 TO HOME OR SELFCARE Is pt being admited?: No Does the pt Need Aspirin: Yes Condition: Stable Instructions: Chest Pain (ED) Additional Instructions: CONTINUE YOUR HOME MEDS FOLLOW UP WITH DR JOHNSTON IN 5 DAYS HE KNOWS YOU WERE HERE TODAY AND WANTS TO SEE YOU IN FOLLOW UP CARDIAC DIET ACTIVITY AT TOLERATED Referrals: ISAI JOHNSTON MD [Staff Physician] - 3-5 Days ERICA CALERO MD [Staff Physician] - 3-5 Days Time of Disposition: 12:00
[2019-04-24] MEDS ORDERED: ALBUTEROL 2.5 MG/3 ML NEBU IH ONE (09:51)
[2019-04-24 10:23] LABS: Hematocrit 39.3 % (35.5-45.6); Hemoglobin 13.5 gm/dl (11.8-15.2); Mean Corpuscular HGB Conc 34 % (32-34); Mean Corpuscular Volume 90 fl (84-94); Platelet Count 300 K/mm3 (140-440); Red Blood Count 4.35 M/mm3 (3.65-5.03); Red Cell Distribution Width 15.7 % (13.2-15.2)
[2019-04-24] MEDS ORDERED: FUROSEMIDE 40 MG/4 ML INJ IV ONE (10:29)
[2019-04-24 10:36] LABS: Eosinophils # (Auto) 0.1 K/mm3 (0.0-0.4); Eosinophils % (Auto) 1.5 % (0.0-4.3); Lymphocytes # (Auto) 1.8 K/mm3 (1.2-5.4); Lymphocytes % (Auto) 34.7 % (13.4-35.0); Monocytes # (Auto) 0.5 K/mm3 (0.0-0.8)
[2019-04-24 10:38] LABS: INR 1.02 (0.87-1.13); Partial Thromboplastin Time 39.2 Sec. (24.2-36.6)
[2019-04-24 10:42] LABS: Basophils % (Auto) 0.7 % (0.0-1.8)
--- NOTE | 2019-04-24 10:43 | XRay Report ---
CHEST 1 VIEW INDICATION / CLINICAL INFORMATION: sob. Dyspnea. COMPARISON: None available. FINDINGS: SUPPORT DEVICES: None. HEART / MEDIASTINUM: No significant abnormality. LUNGS / PLEURA: No significant pulmonary or pleural abnormality. No pneumothorax. ADDITIONAL FINDINGS: No significant additional findings. IMPRESSION: 1. No acute findings. Signer Name: Willie May MD Signed: 04/24/2019 10:39 AM Workstation Name: [id number]
[2019-04-24 10:53] LABS: Alanine Aminotransferase 13 units/L (7-56); Albumin 4.1 g/dL (3.9-5); BUN/Creatinine Ratio 14; Blood Urea Nitrogen 13 mg/dL (9-20); Calcium 8.7 mg/dL (8.4-10.2); Hemolysis Index 8
[2019-04-24 11:19] VITALS: BP 152/98
[2019-04-24] MEDS ORDERED: POTASSIUM CHLORIDE ER 20 MEQ TAB PO ONE (11:21)
[2019-04-24 12:11] LABS: Bacteria,Urine 2+ /HPF (Negative); Bilirubin,Urine NEG (Negative); Blood,Urine NEG (Negative); Color,Urine Yellow (Yellow); Mucus,Urine FEW /HPF; Protein,Urine <15 mg/dL mg/dL (Negative); RBC,Urine < 1.0 /HPF (0.0-6.0); Urobilinogen,Urine < 2.0 mg/dL (<2.0); WBC,Urine < 1.0 /HPF (0.0-6.0)
== END 2019-04-24 12:20 | disposition home or self-care (01) ==
LOC: ED 09:17
DX: I42.9 Cardiomyopathy, unspecified (principal); I11.0 Hypertensive heart disease with heart failure; I50.9 Heart failure, unspecified; R60.9 Edema, unspecified; E87.6 Hypokalemia; E11.9 Type 2 diabetes mellitus without complications; J44.9 Chronic obstructive pulmonary disease, unspecified; F17.200 Nicotine dependence, unspecified, uncomplicated; E78.00 Pure hypercholesterolemia, unspecified; Z95.5 Presence of coronary angioplasty implant and graft; Z98.890 Other specified postprocedural states; Z79.899 Other long term (current) drug therapy
CPT/HCPCS: 36415; 71045; 80053; 81001; 83880; 84484; 85007; 85025; 85610; 85730; 93005; 93010; 96374; 99284; J1940; 94640

== ENCOUNTER 2020-01-22 09:23 | Outpatient (CLI) | payer MEDICAID ==
--- NOTE | 2020-01-22 10:37 | XRay Report ---
LEFT SHOULDER 3 VIEWS INDICATION: M25.512 PAIN IN LEFT SHOULDER. COMPARISON: None. IMPRESSION: No acute osseous or soft tissue abnormality. No significant DJD. Pacemaker device ove rlies the left axillary soft tissues which is grossly unremarkable. Signer Name: Arjun Leavitt Jr, MD Signed: 01/22/2020 10:32 AM Workstation Name: [id number]
== END 2020-01-22 09:24 | disposition home or self-care (01) ==
LOC: XRAY 09:23
PROVIDERS: ATTEND Internal Medicine
DX: M25.512 Pain in left shoulder (principal); Z95.0 Presence of cardiac pacemaker

== ENCOUNTER 2020-03-06 10:02 | Outpatient (CLI) | payer MEDICAID ==
--- NOTE | 2020-03-06 11:11 | XRay Report ---
LEFT SHOULDER 3 VIEWS INDICATION / CLINICAL INFORMATION: PAIN IN LEFT SHOULDER COMPARISON: None available. FINDINGS: BONES / JOINT(S): No acute fracture or subluxation. Mild reactive change at the site of attachment of the rotator cuff upon the humeral head. SOFT TISSUES: No significant abnormality. ADDITIONAL FINDINGS: None. Signer Name: Julián Mcdonough MD Signed: 03/06/2020 11:06 AM Workstation Name: [id number]
== END 2020-03-06 10:03 | disposition home or self-care (01) ==
LOC: XRAY 10:02
PROVIDERS: ATTEND Internal Medicine
DX: M25.512 Pain in left shoulder (principal)

== ENCOUNTER 2020-03-12 11:16 | Emergency (ER) | payer MEDICAID ==
[2020-03-12] MEDS ORDERED: FUROSEMIDE 20 MG TAB PO ONE (12:08)
--- NOTE | 2020-03-12 12:12 | Emergency Department Report ---
HPI - General Chief Complaint: Extremity Injury, Lower Time Seen by Provider: 03/12/20 12:02 - HPI HPI: Room 3 The patient is a 64-year-old male present with a chief complaint of bilateral lower extremity edema. The patient has a history of CHF and states he ran out of his Lasix 5 days ago. Patient states over the past 3 days he has had swelling in both legs but greatest in the right. Patient denies any preceding trauma. Patient denies history of fever. Patient states he contacted his chief yeoman and was instructed to come to the hospital to have imaging performed of his legs. He states that his chief yeoman is refilling his Lasix and it should arrive today ED Past Medical Hx - Past Medical History Hx Hypertension: Yes Hx Heart Attack/AMI: Yes Hx Congestive Heart Failure: Yes Hx Diabetes: Yes Hx GERD: Yes Hx COPD: Yes Additional medical history: Cardiac stent, high cholesterol, atrial flutter - Surgical History Hx Coronary Stent: Yes Hx Open Heart Surgery: Yes Additional Surgical History: CABG - Family History Family history: no significant - Social History Smoking Status: Never Smoker Substance Use Type: None - Medications Home Medications: Home Medications Medication Instructions Recorded Confirmed Last Taken Type Apixaban [Eliquis starter pack] 5 mg PO BID #60 tab 02/06/19 09/22/19 Unknown Rx Aspirin [Adult Aspirin] 81 mg PO DAILY #30 tablet. 02/06/19 09/22/19 Unknown Rx Amiodarone 200 mg PO DAILY 05/24/19 09/22/19 Unknown History Acetaminophen [Acetaminophen TAB] 2 tab PO Q4H PRN #15 tablet 05/25/19 09/22/19 Unknown Rx Clopidogrel [Plavix] 75 mg PO QDAY #30 tablet 05/25/19 09/22/19 Unknown Rx Docusate Sodium [Colace CAP] 100 mg PO BID #60 capsule 05/25/19 09/22/19 Unknown Rx Furosemide [Lasix TAB] 40 mg PO BID #60 tablet 05/25/19 09/22/19 Unknown Rx Losartan Potassium 100 mg PO DAILY #30 tab 05/25/19 09/22/19 Unknown Rx Pantoprazole [Protonix TAB] 40 mg PO DAILY #30 tablet 05/25/19 09/22/19 Unknown Rx Potassium Chloride [K-Dur] 20 meq PO QDAY #30 tablet 05/25/19 09/22/19 Unknown Rx Pravastatin [Pravachol] 20 mg PO QHS #30 tablet 05/25/19 09/22/19 Unknown Rx amLODIPine 5 mg PO DAILY #30 tablet 05/25/19 09/22/19 Unknown Rx HYDROcodone/APAP 5-325 [[place] 1 each PO TID PRN #15 tablet 09/27/19 Unknown Rx 5-325 mg TAB] ISOSORBIDE MONOnitrate [Imdur ER] 30 mg PO QDAY #30 tablet 09/27/19 Unknown Rx ED Review of Systems ROS: Stated complaint: RT LEG PAIN Other details as noted in HPI Constitutional: no symptoms reported. denies: fever Eyes: denies: eye pain ENT: denies: throat pain Respiratory: no symptoms reported Cardiovascular: denies: chest pain Endocrine: no symptoms reported Gastrointestinal: denies: abdominal pain Genitourinary: denies: dysuria Musculoskeletal: denies: back pain Neurological: denies: headache Hematological/Lymphatic: other (Bilateral lower extremity edema) Physical Exam - Physical Exam Vital Signs: Vital Signs 03/12/20 11:17 Temperature 97.8 F Pulse Rate 63 Respiratory 20 Rate Blood Pressure 194/98 O2 Sat by Pulse 100 Oximetry Physical Exam: GENERAL: The patient is well-developed well-nourished male sitting on stretcher not appearing to be in acute distress. [] HEENT: Normocephalic. Atraumatic. Extraocular motions are intact. Patient has moist mucous membranes. NECK: Supple. Trachea midline CHEST/LUNGS: Clear to auscultation. There is no respiratory distress noted. HEART/CARDIOVASCULAR: Regular. There is no tachycardia. There is no gallop rub or murmur. ABDOMEN: Abdomen is soft, nontender. Patient has normal bowel sounds. There is no abdominal distention. SKIN: There is no rash. There is 2+ bilateral lower extremity pitting edema. There is no diaphoresis. NEURO: The patient is awake, alert, and oriented. The patient is cooperative. The patient has normal speech MUSCULOSKELETAL: There is no evidence of acute injury. ED Course Vital Signs 03/12/20 11:17 Temperature 97.8 F Pulse Rate 63 Respiratory 20 Rate Blood Pressure 194/98 O2 Sat by Pulse 100 Oximetry ED Medical Decision Making - Lab Data Result diagrams: 03/12/20 12:13 03/12/20 12:13 Laboratory Tests 03/12/20 03/12/20 12:13 12:13 WBC 5.1 RBC 5.04 H Hgb 15.6 H Hct 47.0 H MCV 93 MCH 31 MCHC 33 RDW 14.6 Plt Count 246 Lymph % (Auto) 36.7 H [place] % (Auto) 9.8 H Eos % (Auto) 3.0 Baso % (Auto) 0.8 Lymph # (Auto) 1.9 [place] # (Auto) 0.5 Eos # (Auto) 0.2 Baso # (Auto) 0.0 Seg Neutrophils % 49.7 Seg Neutrophils # 2.5 Sodium 141 Potassium 4.0 Chloride 103.8 Carbon Dioxide 28 Anion Gap 13 BUN 14 Creatinine 1.0 Estimated GFR > 60 BUN/Creatinine Ratio 14 Glucose 100 Calcium 9.2 Total Bilirubin 0.50 AST 19 ALT 22 Alkaline Phosphatase 77 NT-Pro-B Natriuret Pep 253.2 Total Protein 7.8 Albumin 4.0 Albumin/Globulin Ratio 1.1 - Radiology Data Radiology results: report reviewed (Bilateral lower extremity Dopplers (verbal report from [facility])) Bilateral lower extremity Dopplers (verbal report from [facility]) negative for DVT bilaterally - Differential Diagnosis CHF, DVT Critical care attestation.: If time is entered above; I have spent that time in minutes in the direct care of this critically ill patient, excluding procedure time. ED Disposition Clinical Impression: Peripheral edema, CHF (congestive heart failure) Disposition: TO HOME OR SELFCARE Is pt being admited?: No Does the pt Need Aspirin: No Condition: Stable Additional Instructions: Return to the emergency department should you develop worsening symptoms, inability to tolerate food or liquids, high fever or any other concerns Referrals: PRIMARY MD JANNETH [Primary Care Provider] - 3-5 Days Time of Disposition: 14:07
[2020-03-12 12:29] LABS: Basophils % (Auto) 0.8 % (0.0-1.8); Eosinophils # (Auto) 0.2 K/mm3 (0.0-0.4); Hemoglobin 15.6 gm/dl (11.8-15.2); Lymphocytes # (Auto) 1.9 K/mm3 (1.2-5.4); Lymphocytes % (Auto) 36.7 % (13.4-35.0); Mean Corpuscular HGB Conc 33 % (32-34); Mean Corpuscular Volume 93 fl (84-94); Monocytes # (Auto) 0.5 K/mm3 (0.0-0.8); Monocytes % (Auto) 9.8 % (0.0-7.3); Platelet Count 246 K/mm3 (140-440); Red Blood Count 5.04 M/mm3 (3.65-5.03); Red Cell Distribution Width 14.6 % (13.2-15.2)
[2020-03-12 12:52] LABS: Alanine Aminotransferase 22 units/L (7-56); BUN/Creatinine Ratio 14; Blood Urea Nitrogen 14 mg/dL (9-20); Calcium 9.2 mg/dL (8.4-10.2); Hemolysis Index 3
[2020-03-12] MEDS ORDERED: cloNIDine 0.1 MG TAB PO ONE (14:01)
[2020-03-12 14:07] VITALS: BP 178/96
--- NOTE | 2020-03-12 15:30 | Vascular Lab Report ---
DUPLEX DOPPLER LOWER EXTREMITY VEINS, BILATERAL INDICATION / CLINICAL INFORMATION: Swelling. TECHNIQUE: Duplex doppler imaging was performed through the veins of both lower extremities using venous lyle lisbeth and other maneuvers. COMPARISON: None available. FINDINGS: RIGHT COMMON FEMORAL VEIN: Negative. RIGHT FEMORAL VEIN: Negative. RIGHT POPLITEAL VEIN: Negative. RIGHT CALF VEINS: Negative. LEFT COMMON FEMORAL VEIN: Negative. LEFT FEMORAL VEIN: Negative. LEFT POPLITEAL VEIN: Negative. LEFT CALF VEINS: Negative. ADDITIONAL FINDINGS: None. IMPRESSION: 1. No sonographic evidence for DVT in either lower extremity. Signer Name: Naresh Rocha MD Signed: 03/12/2020 3:26 PM Workstation Name: [id number]
== END 2020-03-12 14:17 | disposition home or self-care (01) ==
LOC: ED 11:16
DX: I50.9 Heart failure, unspecified (principal); R60.9 Edema, unspecified; I11.0 Hypertensive heart disease with heart failure; I25.2 Old myocardial infarction; E11.9 Type 2 diabetes mellitus without complications; J44.9 Chronic obstructive pulmonary disease, unspecified; K21.9 Gastro-esophageal reflux disease without esophagitis; Z98.890 Other specified postprocedural states; Z79.899 Other long term (current) drug therapy
CPT/HCPCS: 36415; 80053; 83880; 85025; 93970

== ENCOUNTER 2020-05-13 09:28 | Outpatient (CLI) | payer MEDICAID ==
[2020-05-11 10:59] LABS: Blood Urea Nitrogen 18 mg/dL (9-20)
--- NOTE | 2020-05-13 12:44 | Cat Scan Report ---
CT UPPER EXTREM LT W CON INDICATION: Left shoulder pain. TECHNIQUE: All CT scans at this location are performed using the following dose modulation technique: Automated exposure control. COMPARISON: Radiographs 03/06/2020. FINDINGS: There is no acute skeletal abnormality. Mild acromioclavicular degenerative change is noted. There is attenuation of the distal supraspinatus tendon. Supraspinatus muscle is mildly atrophic. The re is also mild atrophy of the infraspinatus muscle. There is a small glenohumeral joint effusion. Fluid is seen in the subcoracoid bursa. No subdeltoid/s ubacromial bursitis is identified. There is contrast within the soft tissues of the antecubital fossa. No acute vascular findings. No soft tissue mass or fluid collection. IMPRESSION: 1. No acute skeletal abnormality. 2. Contrast in the left antecubital fossa may be due to extravasation at the time of injection, corre late clinically. 3. There is a small left shoulder effusion with mild subcoracoid bursitis. This is of uncertain etiol ogy. 4. The distal supraspinatus tendon is attenuated and there is supraspinatus muscle atrophy. These fin dings are suggestive of chronic, high-grade supraspinatus tendon tear. MRI would be useful to better characterize this. Signer Name: Graham Washington MD Signed: 05/13/2020 12:39 PM Workstation Name: [id number]
== END 2020-05-13 09:29 | disposition home or self-care (01) ==
LOC: CT 09:28
PROVIDERS: ATTEND Orthopaedic Surgery
DX: M19.012 Primary osteoarthritis, left shoulder (principal); M25.412 Effusion, left shoulder; M75.52 Bursitis of left shoulder
CPT/HCPCS: 36415; 73201; 82565; 84520; Q9967

== ENCOUNTER 2020-06-09 10:36 | Outpatient (CLI) | payer MEDICAID ==
[2020-06-09 11:21] LABS: Chol/HDL Ratio 3.71 %
== END 2020-06-09 10:37 | disposition home or self-care (01) ==
LOC: LAB 10:36
PROVIDERS: ATTEND Internal Medicine
DX: E78.5 Hyperlipidemia, unspecified (principal); E11.65 Type 2 diabetes mellitus with hyperglycemia
CPT/HCPCS: 36415; 80061; 83036

== ENCOUNTER 2020-06-20 12:04 | Emergency (ER) | payer MEDICAID ==
--- NOTE | 2020-06-20 12:24 | Event Note ---
ED Screening Note Date of service: 06/20/20 Time: 12:21 ED Screening Note: This initial assessment/diagnostic orders/clinical plan/treatment(s) is/are subject to change based on patients health status, clinical progression and re- assessment by fellow clinical providers in the ED. Further treatment and workup at subsequent clinical providers discretion. Patient/guardian urged not to elope from the ED as their condition may be serious if not clinically assessed and managed. Initial orders include: 65 yo male with PMH of Type 2 DM, Ishemic cardiomyopathy CAD, COPD & HTN. C/o weakness and genital rash x 3 days. One week ago started on Farxiga for his diabetes.
--- NOTE | 2020-06-20 12:51 | XRay Report ---
CHEST 2 VIEWS INDICATION / CLINICAL INFORMATION: WEAKNESS. COMPARISON: Chest one view from 09/26/2019. FINDINGS: SUPPORT DEVICES: Unchanged. HEART / MEDIASTINUM: Stable. LUNGS / PLEURA: Clear lungs. No significant pleural effusion. No pneumothorax. ADDITIONAL FINDINGS: No significant additional findings. IMPRESSION: 1. No significant abnormality of the chest. Signer Name: Kam Mcdonald MD Signed: 06/20/2020 12:47 PM Workstation Name: [id number]
[2020-06-20 13:30] LABS: Hematocrit 43.7 % (35.5-45.6); Mean Corpuscular HGB Conc 34 % (32-34); Mean Corpuscular Volume 94 fl (84-94); Platelet Count 267 K/mm3 (140-440); Red Blood Count 4.67 M/mm3 (3.65-5.03); Red Cell Distribution Width 13.9 % (13.2-15.2)
[2020-06-20 13:55] LABS: Alanine Aminotransferase 30 units/L (7-56); Albumin 4.1 g/dL (3.9-5); BUN/Creatinine Ratio 25; Blood Urea Nitrogen 27 mg/dL (9-20); Calcium 9.3 mg/dL (8.4-10.2); Hemolysis Index 0
[2020-06-20 15:42] LABS: Bacteria,Urine 1+ /HPF (Negative); Bilirubin,Urine NEG (Negative); Blood,Urine NEG (Negative); Color,Urine Colorless (Yellow); Hyaline Casts,Urine 1 /LPF; Protein,Urine <15 mg/dL mg/dL (Negative); Urobilinogen,Urine < 2.0 mg/dL (<2.0)
--- NOTE | 2020-06-20 16:22 | Emergency Department Report ---
- General Chief complaint: Weakness Stated complaint: WEAK SYMPTOMS Time Seen by Provider: 06/20/20 16:17 Source: patient Mode of arrival: Ambulatory Limitations: No Limitations - History of Present Illness Initial comments: Chief complaint: "I think I am having a reaction to this new medication." HPI: This is a 65-year-old male with history of insulin-dependent diabetes, congestive heart failure, COPD, GERD, HIV,HTN, HLD, atrial flutter, [place] who presents with genital rash irriation since starting Farxiga a few days ago. He used over the counter cream without relief. Mild irritation at genital rash. Patient stated that he had weakness at triage. However, patient denies weakness. MD Complaint: generalized weakness -: Gradual, days(s) (3) Location: generalized Severity: mild Consistency: now resolved Improves with: none Worsens with: none Context: new medication (Farxiga) Associated Symptoms: other (genital rash) - Related Data Home Medications Medication Instructions Recorded Confirmed Last Taken Amiodarone 200 mg PO DAILY 05/24/19 09/22/19 Unknown Previous Rx's Medication Instructions Recorded Last Taken Type Apixaban [Eliquis starter pack] 5 mg PO BID #60 tab 02/06/19 Unknown Rx Aspirin [Adult Aspirin] 81 mg PO DAILY #30 tablet. 02/06/19 Unknown Rx Acetaminophen [Acetaminophen TAB] 2 tab PO Q4H PRN #15 tablet 05/25/19 Unknown Rx Clopidogrel [Plavix] 75 mg PO QDAY #30 tablet 05/25/19 Unknown Rx Docusate Sodium [Colace CAP] 100 mg PO BID #60 capsule 05/25/19 Unknown Rx Furosemide [Lasix TAB] 40 mg PO BID #60 tablet 05/25/19 Unknown Rx Losartan Potassium 100 mg PO DAILY #30 tab 05/25/19 Unknown Rx Pantoprazole [Protonix TAB] 40 mg PO DAILY #30 tablet 05/25/19 Unknown Rx Potassium Chloride [K-Dur] 20 meq PO QDAY #30 tablet 05/25/19 Unknown Rx Pravastatin [Pravachol] 20 mg PO QHS #30 tablet 05/25/19 Unknown Rx amLODIPine 5 mg PO DAILY #30 tablet 05/25/19 Unknown Rx HYDROcodone/APAP 5-325 [[place] 1 each PO TID PRN #15 tablet 09/27/19 Unknown Rx 5-325 mg TAB] ISOSORBIDE MONOnitrate [Imdur ER] 30 mg PO QDAY #30 tablet 09/27/19 Unknown Rx Clotrimazole 1% [Lotrimin 1%] 1 applic TP BID 14 Days #2 tube 06/20/20 Unknown Rx Neomycn/Bacitrc/Polymyx/Pramox 1 appful TP BID 14 Days #1 06/20/20 Unknown Rx [Triple Antibiotic Plus Ointmnt] oint...g. Allergies Allergy/AdvReac Type Severity Reaction Status Date / Time No Known Allergies Allergy Verified 03/12/20 11:16 ED Review of Systems ROS: Stated complaint: WEAK SYMPTOMS Other details as noted in HPI Comment: All other systems reviewed and negative Constitutional: denies: fever, malaise Respiratory: denies: cough, shortness of breath Gastrointestinal: denies: abdominal pain, nausea, vomiting Skin: rash, lesions ED Past Medical Hx - Past Medical History Previous Medical History?: Yes Hx Hypertension: Yes Hx CVA: No Hx Heart Attack/AMI: Yes Hx Congestive Heart Failure: Yes Hx Diabetes: Yes Hx Deep Vein Thrombosis: No Hx Pulmonary Embolism: No Hx GERD: Yes Hx Liver Disease: No Hx Renal Disease: No Hx Sickle Cell Disease: No Hx Arthritis: No Hx Headaches / Migraines: No Hx Seizures: No Hx Kidney Stones: No Hx Psychiatric Treatment: No Hx Asthma: No Hx COPD: Yes Hx Tuberculosis: No Hx Dementia: No Hx HIV: No Additional medical history: Cardiac stent, high cholesterol, atrial flutter - Surgical History Past Surgical History?: Yes Hx Coronary Stent: Yes Hx Open Heart Surgery: Yes Hx Pacemaker: No Hx Internal Defibrillator: No Hx Cholecystectomy: No Hx Appendectomy: No Hx Breast Surgery: No Additional Surgical History: CABG - Social History Smoking Status: Never Smoker Substance Use Type: None - Medications Home Medications: Home Medications Medication Instructions Recorded Confirmed Last Taken Type Apixaban [Eliquis starter pack] 5 mg PO BID #60 tab 02/06/19 09/22/19 Unknown Rx Aspirin [Adult Aspirin] 81 mg PO DAILY #30 tablet. 02/06/19 09/22/19 Unknown Rx Amiodarone 200 mg PO DAILY 05/24/19 09/22/19 Unknown History Acetaminophen [Acetaminophen TAB] 2 tab PO Q4H PRN #15 tablet 05/25/19 09/22/19 Unknown Rx Clopidogrel [Plavix] 75 mg PO QDAY #30 tablet 05/25/19 09/22/19 Unknown Rx Docusate Sodium [Colace CAP] 100 mg PO BID #60 capsule 05/25/19 09/22/19 Unknown Rx Furosemide [Lasix TAB] 40 mg PO BID #60 tablet 05/25/19 09/22/19 Unknown Rx Losartan Potassium 100 mg PO DAILY #30 tab 05/25/19 09/22/19 Unknown Rx Pantoprazole [Protonix TAB] 40 mg PO DAILY #30 tablet 05/25/19 09/22/19 Unknown Rx Potassium Chloride [K-Dur] 20 meq PO QDAY #30 tablet 05/25/19 09/22/19 Unknown Rx Pravastatin [Pravachol] 20 mg PO QHS #30 tablet 05/25/19 09/22/19 Unknown Rx amLODIPine 5 mg PO DAILY #30 tablet 05/25/19 09/22/19 Unknown Rx HYDROcodone/APAP 5-325 [[place] 1 each PO TID PRN #15 tablet 09/27/19 Unknown Rx 5-325 mg TAB] ISOSORBIDE MONOnitrate [Imdur ER] 30 mg PO QDAY #30 tablet 09/27/19 Unknown Rx Clotrimazole 1% [Lotrimin 1%] 1 applic TP BID 14 Days #2 tube 06/20/20 Unknown Rx Neomycn/Bacitrc/Polymyx/Pramox 1 appful TP BID 14 Days #1 06/20/20 Unknown Rx [Triple Antibiotic Plus Ointmnt] oint...g. ED Physical Exam - General Limitations: No Limitations General appearance: alert, in no apparent distress - Head Head exam: Present: atraumatic, normocephalic - Eye Eye exam: Present: normal appearance - ENT ENT exam: Present: mucous membranes moist - Neck Neck exam: Present: normal inspection, full ROM - Respiratory Respiratory exam: Present: normal lung sounds bilaterally. Absent: respiratory distress, wheezes, rales, rhonchi - Cardiovascular Cardiovascular Exam: Present: regular rate, normal rhythm, normal heart sounds. Absent: systolic murmur, diastolic murmur, rubs, gallop - GI/Abdominal GI/Abdominal exam: Present: soft, normal bowel sounds. Absent: distended, tenderness, guarding, rebound - Rectal Rectal exam: Present: deferred - exam: Present: other (uncircumcised, foreskin: small ulcer, white pasty discharge) - Extremities Exam Extremities exam: Present: normal inspection - Neurological Exam Neurological exam: Present: alert, oriented X3 - Psychiatric Psychiatric exam: Present: normal affect, normal mood - Skin Skin exam: Present: warm, dry, intact, normal color. Absent: rash ED Course Vital Signs 06/20/20 06/20/20 06/20/20 12:10 15:38 16:36 Temperature 98.2 F Pulse Rate 78 80 75 Respiratory 20 18 18 Rate Blood Pressure 140/87 Blood Pressure 115/74 126/83 [Left] O2 Sat by Pulse 97 97 98 Oximetry ED Medical Decision Making - Lab Data Result diagrams: 06/20/20 12:51 06/20/20 12:51 - EKG Data -: EKG Interpreted by Me EKG shows normal: sinus rhythm, axis, intervals, QRS complexes Rate: normal - EKG Data 06/20/20 16:21 EKG obtained 1245 EKG interpreted by me Normal sinus rhythm rate 75 bpm normal axis normal intervals positive LVH according to aVL criteria - Medical Decision Making 1. candidal balanitis: clotrimazole ointment prescribed as well as empiric treatment with triple antibiotic ointment 2. patient denies weakness: EKG, cXR, labs WNL Critical care attestation.: If time is entered above; I have spent that time in minutes in the direct care of this critically ill patient, excluding procedure time. ED Disposition Clinical Impression: Balanitis, Generalized weakness Disposition: DC-01 TO HOME OR SELFCARE Is pt being admited?: No Does the pt Need Aspirin: No Condition: Stable Instructions: Balanitis Prescriptions: Clotrimazole 1% [Lotrimin 1%] 1 applic TP BID 14 Days #2 tube Neomycn/Bacitrc/Polymyx/Pramox [Triple Antibiotic Plus Ointmnt] 1 appful TP BID 14 Days #1 oint...g. Referrals: ERICA CALERO MD [Primary Care Provider] - 3-5 Days
[2020-06-20 16:37] VITALS: BP 126/83
== END 2020-06-20 16:37 | disposition home or self-care (01) ==
LOC: ED 12:04
DX: N48.1 Balanitis (principal); R53.1 Weakness; E11.9 Type 2 diabetes mellitus without complications; I50.9 Heart failure, unspecified; J44.9 Chronic obstructive pulmonary disease, unspecified; K21.9 Gastro-esophageal reflux disease without esophagitis; I11.0 Hypertensive heart disease with heart failure; I48.92 Unspecified atrial flutter; I25.2 Old myocardial infarction; E78.00 Pure hypercholesterolemia, unspecified; Z98.890 Other specified postprocedural states; Z21 Asymptomatic human immunodeficiency virus [HIV] infection status
CPT/HCPCS: 36415; 71046; 80053; 81001; 85027; 93005

== ENCOUNTER 2020-07-02 08:35 | Outpatient (CLI) | payer MEDICAID ==
--- NOTE | 2020-07-02 11:29 | Fluoroscopy Report ---
ARTHROGRAM OF THE LEFT SHOULDER HISTORY: PAIN IN LEFT SHOULER. COMPARISON: None. CONSENT: The risks,benefits, and alternatives of theprocedure were discussed with the patient who agr eed toproceed. TECHNIQUE: The patient was placed supine on the fluoroscopy table. The left shoulder joint was ident ified and overlying skin demarcated under fluoroscopic guidance. Area was prepped and draped in the u sual sterile fashion. Time-out was performed. Skin and subcutaneous tissues were anesthetized with lidocaine. A 22-gauge spinal needle was placed into the joint space under fluoroscopic guidance. A mixture conta ining 10 cc of Omnipaque 180 and 10 cc of sterile saline was made. The needle was removed and the pat ient tolerated the procedure well without immediate complication. Fluoroscopic images obtained demonstrate extravasation of contrast agent into the subacromial and sub deltoid spaces consistent with a rotator cuff tear. FLUOROSCOPIC TIME: 2.7 seconds # IMAGES: 9 CONTRAST VOLUME: 12 cc of dilute IV contrast was injected. IMPRESSION: Technically successful arthrogram. Rotator cuff tear is suspected on fluoroscopy. See post arthrogram CT for full details. Signer Name: Arjun Leavitt Jr, MD Signed: 07/02/2020 11:24 AM Workstation Name: [id number]
--- NOTE | 2020-07-02 15:19 | Cat Scan Report ---
CT LEFT SHOULDER ARTHROGRAM WITH CONTRAST INDICATION : Left shoulder pain. TECHNIQUE: Axial imaging performed through the left shoulder following injection of 12 cc of intra-a rticular contrast. Sagittal and coronal reformatted images. All CT scans at this location are perfor med using CT dose reduction for ALARA by means of automated exposure control. COMPARISON: 05/13/2020 FINDINGS: There is adequate distention of the joint capsule. Contrast extends into the subacromial bursa, subde ltoid bursa and subscapular recess. Complete rupture of the distal supraspinatus and infraspinatus te ndons is demonstrated with retraction to the level of the acromion. There is mild fatty atrophy of th e supraspinatus and infraspinatus tendon suggesting a chronic process. The subscapularis appears to b e intact although it is poorly imaged. The teres minor is unremarkable. The long head of the biceps tendon is not clearly identified and may be ruptured as well. The bony structures are intact. There is no evidence for fracture or suspicious bony lesion. Minimal osteoarthritic changes are identified at the glenohumeral joint and AC joint. IMPRESSION: Complete rupture of the distal supraspinatus and infraspinatus tendons. Long head of the biceps tendon rupture is also suspected as it is not confidently identified. Mild degenerative changes. Signer Name: Arjun Leavitt Jr, MD Signed: 07/02/2020 3:15 PM Workstation Name: [id number]
== END 2020-07-02 08:36 | disposition home or self-care (01) ==
LOC: FLUORO 08:35
PROVIDERS: ATTEND Orthopaedic Surgery
DX: M25.512 Pain in left shoulder (principal); M19.012 Primary osteoarthritis, left shoulder; E11.9 Type 2 diabetes mellitus without complications; I25.5 Ischemic cardiomyopathy; I25.10 Atherosclerotic heart disease of native coronary artery without angina pectoris; I11.0 Hypertensive heart disease with heart failure; I50.9 Heart failure, unspecified; J44.9 Chronic obstructive pulmonary disease, unspecified; I48.91 Unspecified atrial fibrillation; K21.9 Gastro-esophageal reflux disease without esophagitis; Z83.3 Family history of diabetes mellitus; Z87.01 Personal history of pneumonia (recurrent); Z79.899 Other long term (current) drug therapy; Z79.82 Long term (current) use of aspirin; Z95.1 Presence of aortocoronary bypass graft; Z98.890 Other specified postprocedural states
CPT/HCPCS: 23350; 73040; 73201; Q9965; Q9967

== ENCOUNTER 2020-09-03 09:11 | Outpatient (CLI) | payer MEDICAID ==
--- NOTE | 2020-09-03 09:51 | XRay Report ---
RIGHT ANKLE 3 VIEW(S) INDICATION / CLINICAL INFORMATION: PAIN IN RIGHT ANKLE AND JOINTS OF RIGHT FOOT COMPARISON: None available. FINDINGS: BONES / JOINT(S): Focal osteochondral defect versus degenerative subchondral cyst within medial talar dome. No significant arthritis. SOFT TISSUES: Mild diffuse subcutaneous soft tissue swelling ADDITIONAL FINDINGS: None. Signer Name: Harsha Bee MD Signed: 09/03/2020 9:47 AM Workstation Name: [id number]
--- NOTE | 2020-09-03 10:33 | Vascular Lab Report ---
VL venous duplex LE BILAT INDICATION / CLINICAL INFORMATION: EDEMA,UNSPECIFIED. COMPARISON: None available. FINDINGS: No evidence of deep vein thrombosis in either leg. Signer Name: Rob Vergara MD Signed: 09/03/2020 10:29 AM Workstation Name: [id number]
== END 2020-09-03 09:12 | disposition home or self-care (01) ==
LOC: VAS 09:11
PROVIDERS: ATTEND Internal Medicine
DX: R22.41 Localized swelling, mass and lump, right lower limb (principal); M25.571 Pain in right ankle and joints of right foot
CPT/HCPCS: 93970

== ENCOUNTER 2020-10-13 10:24 | Outpatient (CLI) | payer MEDICAID ==
[2020-10-13 11:01] LABS: Chol/HDL Ratio 3.57 %
== END 2020-10-13 10:25 | disposition home or self-care (01) ==
LOC: LAB 10:24
PROVIDERS: ATTEND Internal Medicine
DX: E11.65 Type 2 diabetes mellitus with hyperglycemia (principal); E78.5 Hyperlipidemia, unspecified
CPT/HCPCS: 36415; 80061; 83036

== ENCOUNTER 2020-12-03 09:36 | Outpatient (CLI) | payer MEDICAID ==
[2020-12-03 10:03] LABS: Basophils % (Auto) 0.9 % (0.0-1.8); Eosinophils # (Auto) 0.1 K/mm3 (0.0-0.4); Eosinophils % (Auto) 2.4 % (0.0-4.3); Hemoglobin 13.6 gm/dl (11.8-15.2); Lymphocytes # (Auto) 1.7 K/mm3 (1.2-5.4); Lymphocytes % (Auto) 31.2 % (13.4-35.0); Mean Corpuscular HGB Conc 33 % (32-34); Mean Corpuscular Volume 93 fl (84-94); Monocytes # (Auto) 0.6 K/mm3 (0.0-0.8); Monocytes % (Auto) 10.9 % (0.0-7.3); Platelet Count 265 K/mm3 (140-440); Red Cell Distribution Width 14.1 % (13.2-15.2)
[2020-12-03 10:26] LABS: Alanine Aminotransferase 15 units/L (7-56); BUN/Creatinine Ratio 24; Blood Urea Nitrogen 22 mg/dL (9-20); Calcium 9.3 mg/dL (8.4-10.2); Chol/HDL Ratio 3.67 %; HDL Cholesterol 37 mg/dL (40-59); Hemolysis Index 6; LDL Cholesterol,Direct 98 mg/dL (50-130)
[2020-12-03 15:24] LABS: Microalbumin/Creatinine Ratio 11.6 ug/mg
== END 2020-12-03 09:37 | disposition home or self-care (01) ==
LOC: LAB 09:36
PROVIDERS: ATTEND Internal Medicine
DX: Z13.29 Encounter for screening for other suspected endocrine disorder (principal); Z00.00 Encounter for general adult medical examination without abnormal findings; E11.65 Type 2 diabetes mellitus with hyperglycemia; E78.5 Hyperlipidemia, unspecified; R39.11 Hesitancy of micturition; E55.9 Vitamin D deficiency, unspecified
CPT/HCPCS: 36415; 80053; 80061; 82043; 83036; 84153; 84443; 85025

== ENCOUNTER 2021-02-09 12:46 | Outpatient (CLI) | payer MEDICAID ==
--- NOTE | 2021-02-09 16:45 | XRay Report ---
CHEST 2 VIEWS INDICATION / CLINICAL INFORMATION: RIGHT RIB FRACTURE. STUDY TIME: 1305 COMPARISON: 06/20/2020 FINDINGS: SUPPORT DEVICES: Pacer is again noted HEART / MEDIASTINUM: Stable. LUNGS / PLEURA: Left perihilar density, probably vascular, is unchanged. No obvious infiltrates are s een. No pleural effusions are noted. No pneumothorax. ADDITIONAL FINDINGS: No obvious acute fractures are seen. Mild anterior loss of height of a lower tho racic vertebral body is stable. Signer Name: Thiago Scott MD Signed: 02/09/2021 4:41 PM Workstation Name: [id number]
== END 2021-02-09 12:47 | disposition home or self-care (01) ==
LOC: XRAY 12:46
PROVIDERS: ATTEND Orthopaedic Surgery
DX: S22.31XA Fracture of one rib, right side, initial encounter for closed fracture (principal); X58.XXXA Exposure to other specified factors, initial encounter; Y93.89 Activity, other specified; Y92.89 Other specified places as the place of occurrence of the external cause; Y99.8 Other external cause status
CPT/HCPCS: 71046

== ENCOUNTER 2021-06-02 09:28 | Outpatient (CLI) | payer MEDICAID ==
[2021-06-02 10:44] LABS: Chol/HDL Ratio 3.25 %
== END 2021-06-02 09:29 | disposition home or self-care (01) ==
LOC: LAB 09:28
PROVIDERS: ATTEND Internal Medicine
DX: E78.5 Hyperlipidemia, unspecified (principal); E11.65 Type 2 diabetes mellitus with hyperglycemia
CPT/HCPCS: 36415; 80061; 83036

== ENCOUNTER 2021-07-23 10:23 | Emergency (ER) | payer MEDICAID ==
[2021-07-23 10:47] VITALS: BP 134/70
--- NOTE | 2021-07-23 12:25 | Emergency Department Report ---
- General Chief Complaint: Laceration/Recheck/Suture Stated Complaint: CUT LEG RT DIABETIC Time Seen by Provider: 07/23/21 11:07 Source: patient Mode of arrival: Ambulatory Limitations: No Limitations - History of Present Illness Initial Comments: 67-year-old black male with a past medical history of diabetes presents to the emergency department for wound check. He states that 3 days ago he cut the backside of his leg. He was seen by his primary care provider on the day of the incident and started on Augmentin twice a day. He states that he has been taking medication as prescribed, denies fever, nausea, vomiting, and fatigue, but he states that he is concerned about wound because he has some drainage from it. -: Gradual, days(s) (3) Location: other (Right posterior lower leg) Extremity Location: Right: Lower Leg Place: home Patient Tetanus UTD: Yes Context: accidental Associated Symptoms: denies: loss of feeling/numbness, suspect foreign body present, unable to move injured part, weakness followed by dizziness, nausea/vomiting, fever Treatments Prior to Arrival: bandage, other (Antibiotics) - Related Data Home Medications Medication Instructions Recorded Confirmed Last Taken Amiodarone 200 mg PO DAILY 05/24/19 09/22/19 Unknown Apixaban [Eliquis] 5 mg PO BID 10/02/20 11/20/20 11/19/20 Aspirin [Adult Aspirin] 81 mg PO DAILY 10/02/20 11/20/20 11/19/20 Clopidogrel [Plavix] 75 mg PO QDAY 10/02/20 11/20/20 11/19/20 Losartan [Cozaar] 100 mg PO QDAY 10/02/20 11/20/20 11/25/20 Bumetanide [Bumex 1 mg tab] 1 mg PO DAILY 10/23/20 11/20/20 11/25/20 Dapagliflozin Propanediol [Farxiga] 10 mg PO DAILY 10/23/20 11/20/20 11/25/20 Gabapentin [Neurontin] 400 mg PO TID 10/23/20 11/20/20 11/25/20 Spironolactone [Aldactone] 25 mg PO QDAY 10/23/20 11/20/20 11/25/20 Atorvastatin [Lipitor Tab] 80 mg PO QHS 11/20/20 11/20/20 11/25/20 Dapagliflozin Propanediol [Farxiga] 1 tab PO DAILY 11/26/20 11/26/20 11/26/20 Insulin Detemir (Nf) [Levemir 30 unit SQ QHS 11/26/20 11/26/20 11/25/20 Flextouch (Nf)] Previous Rx's Medication Instructions Recorded Last Taken Type Apixaban [Eliquis starter pack] 5 mg PO BID #60 tab 02/06/19 Unknown Rx Aspirin [Adult Aspirin] 81 mg PO DAILY #30 tablet.dr 02/06/19 Unknown Rx Acetaminophen [Acetaminophen TAB] 2 tab PO Q4H PRN #15 tablet 05/25/19 Unknown Rx Clopidogrel [Plavix] 75 mg PO QDAY #30 tablet 05/25/19 Unknown Rx Docusate Sodium [Colace CAP] 100 mg PO BID #60 capsule 05/25/19 Unknown Rx Furosemide [Lasix TAB] 40 mg PO BID #60 tablet 05/25/19 Unknown Rx Losartan Potassium 100 mg PO DAILY #30 tab 05/25/19 Unknown Rx Pantoprazole [Protonix TAB] 40 mg PO DAILY #30 tablet 05/25/19 Unknown Rx Potassium Chloride [K-Dur] 20 meq PO QDAY #30 tablet 05/25/19 Unknown Rx Pravastatin [Pravachol] 20 mg PO QHS #30 tablet 05/25/19 Unknown Rx amLODIPine 5 mg PO DAILY #30 tablet 05/25/19 Unknown Rx HYDROcodone/APAP 5-325 [[place] 1 each PO TID PRN #15 tablet 09/27/19 Unknown Rx 5-325 mg TAB] ISOSORBIDE MONOnitrate [Imdur ER] 30 mg PO QDAY #30 tablet 09/27/19 Unknown Rx Clotrimazole 1% [Lotrimin 1%] 1 applic TP BID 14 Days #2 tube 06/20/20 Unknown Rx Neomycn/Bacitrc/Polymyx/Pramox 1 appful TP BID 14 Days #1 06/20/20 Unknown Rx [Triple Antibiotic Plus Ointmnt] oint...g. Oxycodone HCl/Acetaminophen 1 each PO Q6HR PRN #30 tablet 11/26/20 Unknown Rx [Percocet 10/325 mg] Allergies Allergy/AdvReac Type Severity Reaction Status Date / Time No Known Allergies Allergy Verified 04/22/21 11:24 ED Review of Systems ROS: Stated complaint: CUT LEG RT DIABETIC Other details as noted in HPI Comment: All other systems reviewed and negative Constitutional: denies: chills, fever Eyes: denies: eye pain, eye discharge ENT: denies: ear pain, dental pain Respiratory: denies: cough, orthopnea, shortness of breath, SOB with exertion Cardiovascular: denies: chest pain, palpitations, dyspnea on exertion, orthopnea, edema, syncope Endocrine: no symptoms reported Gastrointestinal: denies: abdominal pain, nausea Genitourinary: denies: urgency, dysuria, frequency Musculoskeletal: denies: back pain Skin: denies: rash, lesions Neurological: denies: headache, weakness Psychiatric: denies: anxiety, depression Hematological/Lymphatic: denies: easy bleeding, easy bruising ED Past Medical Hx - Past Medical History Hx Hypertension: Yes Hx CVA: No 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) Hx Congestive Heart Failure: Yes (09/2019) Hx Diabetes: Yes Hx Deep Vein Thrombosis: No Hx Pulmonary Embolism: No Hx GERD: Yes (NO MEDS) Hx Liver Disease: No Hx Renal Disease: No Hx Sickle Cell Disease: No Hx Arthritis: Yes Hx Headaches / Migraines: No Hx Seizures: No Hx Kidney Stones: No Hx Psychiatric Treatment: No Hx Asthma: Yes Hx COPD: Yes (PER H&P- PT DENIES / NO MEDS) Hx Tuberculosis: No Hx Dementia: No Hx HIV: No Additional medical history: Cardiac stent, high cholesterol, atrial flutter - Surgical History Hx Coronary Stent: Yes (X2) Hx Open Heart Surgery: Yes (CABG) Hx Pacemaker: Yes Hx Internal Defibrillator: No Hx Cholecystectomy: No Hx Appendectomy: No Hx Breast Surgery: No Additional Surgical History: CABG - Social History Smoking Status: Former Smoker - Medications Home Medications: Home Medications Medication Instructions Recorded Confirmed Last Taken Type Apixaban [Eliquis starter pack] 5 mg PO BID #60 tab 02/06/19 09/22/19 Unknown Rx Aspirin [Adult Aspirin] 81 mg PO DAILY #30 tablet. 02/06/19 09/22/19 Unknown Rx Amiodarone 200 mg PO DAILY 05/24/19 09/22/19 Unknown History Acetaminophen [Acetaminophen TAB] 2 tab PO Q4H PRN #15 tablet 05/25/19 09/22/19 Unknown Rx Clopidogrel [Plavix] 75 mg PO QDAY #30 tablet 05/25/19 09/22/19 Unknown Rx Docusate Sodium [Colace CAP] 100 mg PO BID #60 capsule 05/25/19 09/22/19 Unknown Rx Furosemide [Lasix TAB] 40 mg PO BID #60 tablet 05/25/19 09/22/19 Unknown Rx Losartan Potassium 100 mg PO DAILY #30 tab 05/25/19 09/22/19 Unknown Rx Pantoprazole [Protonix TAB] 40 mg PO DAILY #30 tablet 05/25/19 09/22/19 Unknown Rx Potassium Chloride [K-Dur] 20 meq PO QDAY #30 tablet 05/25/19 09/22/19 Unknown Rx Pravastatin [Pravachol] 20 mg PO QHS #30 tablet 05/25/19 09/22/19 Unknown Rx amLODIPine 5 mg PO DAILY #30 tablet 05/25/19 09/22/19 Unknown Rx HYDROcodone/APAP 5-325 [[place] 1 each PO TID PRN #15 tablet 09/27/19 Unknown Rx 5-325 mg TAB] ISOSORBIDE MONOnitrate [Imdur ER] 30 mg PO QDAY #30 tablet 09/27/19 Unknown Rx Clotrimazole 1% [Lotrimin 1%] 1 applic TP BID 14 Days #2 tube 06/20/20 Unknown Rx Neomycn/Bacitrc/Polymyx/Pramox 1 appful TP BID 14 Days #1 06/20/20 Unknown Rx [Triple Antibiotic Plus Ointmnt] oint...g. Apixaban [Eliquis] 5 mg PO BID 10/02/20 11/20/20 11/19/20 History Aspirin [Adult Aspirin] 81 mg PO DAILY 10/02/20 11/20/20 11/19/20 History Clopidogrel [Plavix] 75 mg PO QDAY 10/02/20 11/20/20 11/19/20 History Losartan [Cozaar] 100 mg PO QDAY 10/02/20 11/20/20 11/25/20 History Bumetanide [Bumex 1 mg tab] 1 mg PO DAILY 10/23/20 11/20/20 11/25/20 History Dapagliflozin Propanediol [Farxiga] 10 mg PO DAILY 10/23/20 11/20/20 11/25/20 History Gabapentin [Neurontin] 400 mg PO TID 10/23/20 11/20/20 11/25/20 History Spironolactone [Aldactone] 25 mg PO QDAY 10/23/20 11/20/20 11/25/20 History Atorvastatin [Lipitor Tab] 80 mg PO QHS 11/20/20 11/20/20 11/25/20 History Dapagliflozin Propanediol [Farxiga] 1 tab PO DAILY 11/26/20 11/26/20 11/26/20 History Insulin Detemir (Nf) [Levemir 30 unit SQ QHS 11/26/20 11/26/20 11/25/20 History Flextouch (Nf)] Oxycodone HCl/Acetaminophen 1 each PO Q6HR PRN #30 tablet 11/26/20 Unknown Rx [Percocet 10/325 mg] ED Physical Exam - General Limitations: No Limitations General appearance: alert, in no apparent distress - Head Head exam: Present: atraumatic, normocephalic - Eye Eye exam: Present: normal appearance. Absent: conjunctival injection - Neck Neck exam: Present: normal inspection - Respiratory Respiratory exam: Absent: respiratory distress - Cardiovascular Cardiovascular Exam: Present: tachycardia - GI/Abdominal GI/Abdominal exam: Absent: distended - Expanded Lower Extremity Exam Right Lower Leg exam: Present: laceration Neuro vascular tendon exam: Absent: no vascular compromise, pulse deficit Gait: Positive: observed and normal 1 - Small 1 cm laceration noted. Laceration noted to be clean dry with no erythema, edema, or red streaking noted. Noted to have small amount of blood- tinged drainage to dressing. Entire leg noted to be swollen but patient states that is always swollen since having a vein graft for his open heart surgery. - Back Exam Back exam: Present: normal inspection - Neurological Exam Neurological exam: Present: alert, oriented X3 - Psychiatric Psychiatric exam: Present: normal affect, normal mood - Skin Skin exam: Present: warm, dry, normal color ED Course Vital Signs 07/23/21 10:44 Temperature 98.5 F Pulse Rate 107 H Respiratory 16 Rate Blood Pressure 134/70 [Left] O2 Sat by Pulse 100 Oximetry ED Medical Decision Making - Medical Decision Making 67-year-old black male with a past medical history of diabetes presents to the emergency department for wound check. He states that 3 days ago he cut the backside of his leg. He was seen by his primary care provider on the day of the incident and started on Augmentin twice a day. He states that he has been taking medication as prescribed, denies fever, nausea, vomiting, and fatigue, but he states that he is concerned about wound because he has some drainage from it. Laceration noted to be clean and dry without any signs of infection. Patient was advised to continue Augmentin as prescribed by his primary care provider and follow-up with him at appointment already scheduled for Monday. He verbalized understanding of and agreement with plan of care. Critical care attestation.: If time is entered above; I have spent that time in minutes in the direct care of this critically ill patient, excluding procedure time. ED Disposition Clinical Impression: Visit for wound check Disposition: HOME / SELF CARE / HOMELESS Is pt being admited?: No Does the pt Need Aspirin: No Condition: Stable Instructions: Wound Care, Adult Additional Instructions: Continue Augmentin as previously prescribed. Follow-up with primary care provider as planned on Monday. Referrals: ENRICO LAGUNAS MD [Primary Care Provider] - 3-5 Days Time of Disposition: 12:25
== END 2021-07-23 12:38 | disposition home or self-care (01) ==
LOC: ED 10:23
DX: S81.811D Laceration without foreign body, right lower leg, subsequent encounter (principal); X58.XXXD Exposure to other specified factors, subsequent encounter; Z48.00 Encounter for change or removal of nonsurgical wound dressing; I10 Essential (primary) hypertension; E11.8 Type 2 diabetes mellitus with unspecified complications; J45.909 Unspecified asthma, uncomplicated
CPT/HCPCS: 99282

== ENCOUNTER 2021-10-19 09:37 | Outpatient (CLI) | payer MEDICAID ==
--- NOTE | 2021-10-19 13:05 | Vascular Lab Report ---
DUPLEX DOPPLER LOWER EXTREMITY VEINS, RIGHT INDICATION / CLINICAL INFORMATION: EDEMA. TECHNIQUE: Duplex doppler imaging was performed through the veins of the right lower extremity using venous compression and other maneuvers. COMPARISON: Bilateral lower extremity venous Doppler 09/03/2020. FINDINGS: RIGHT COMMON FEMORAL VEIN: Negative. RIGHT FEMORAL VEIN: Negative. RIGHT POPLITEAL VEIN: Negative. RIGHT CALF VEINS: Negative. ADDITIONAL FINDINGS: Mild venous insufficiency is noted in the greater saphenous vein at the common f emoral vein/saphenous vein junction and within the right external iliac vein. IMPRESSION: 1. No sonographic evidence for DVT in the right lower extremity. 2. Incidental finding of mild venous insufficiency, as described above. Scribed by: Lisa Wesley RDMS, JOET, EITAN Scribed: 10/19/2021 10:49 AM I have reviewed the images, agree with this report, and edited this report as needed. Signer Name: Kentrell Kyle MD Signed: 10/19/2021 1:01 PM Workstation Name: [id number]
== END 2021-10-19 09:38 | disposition home or self-care (01) ==
LOC: VAS 09:37
PROVIDERS: ATTEND Internal Medicine
DX: R60.9 Edema, unspecified (principal)

== ENCOUNTER 2021-11-06 19:35 | Emergency (ER) | payer MEDICAID ==
[2021-11-06 20:08] VITALS: BP 160/88
--- NOTE | 2021-11-06 23:50 | Emergency Department Report ---
ED Lower Extremity HPI - General Chief Complaint: Skin/Abscess/Foreign Body Stated Complaint: KNOT ON LEG Time Seen by Provider: 11/06/21 21:56 Source: patient Mode of arrival: Ambulatory Limitations: No Limitations - History of Present Illness Initial Comments: 66-year-old male with past medical history of hypertension CAD lower extremity edema diabetes presents emerged department status post abrasion to his right lower extremity with signs of redness swelling and infection seeking evaluation and treatment. He also reports being out his water pill for the past few days and has noticed some swelling to his legs bilaterally. Reports no chest pain, palpitations, fever, chills, sweats. No nausea, vomiting, hemoptysis no hematemesis hematochezia -: Gradual Injury: Leg: Right Place: home Improves With: nothing Worsens With: nothing - Related Data Home Medications Medication Instructions Recorded Confirmed Last Taken Amiodarone 200 mg PO DAILY 05/24/19 09/22/19 Unknown Apixaban [Eliquis] 5 mg PO BID 10/02/20 11/20/20 11/19/20 Aspirin [Adult Aspirin] 81 mg PO DAILY 10/02/20 11/20/20 11/19/20 Clopidogrel [Plavix] 75 mg PO QDAY 10/02/20 11/20/20 11/19/20 Losartan [Cozaar] 100 mg PO QDAY 10/02/20 11/20/20 11/25/20 Bumetanide [Bumex 1 mg tab] 1 mg PO DAILY 10/23/20 11/20/20 11/25/20 Dapagliflozin Propanediol [Farxiga] 10 mg PO DAILY 10/23/20 11/20/20 11/25/20 Gabapentin [Neurontin] 400 mg PO TID 10/23/20 11/20/20 11/25/20 Spironolactone [Aldactone] 25 mg PO QDAY 10/23/20 11/20/20 11/25/20 Atorvastatin [Lipitor Tab] 80 mg PO QHS 11/20/20 11/20/20 11/25/20 Dapagliflozin Propanediol [Farxiga] 1 tab PO DAILY 11/26/20 11/26/20 11/26/20 Insulin Detemir (Nf) [Levemir 30 unit SQ QHS 11/26/20 11/26/20 11/25/20 Flextouch (Nf)] Previous Rx's Medication Instructions Recorded Last Taken Type Apixaban [Eliquis starter pack] 5 mg PO BID #60 tab 02/06/19 Unknown Rx Aspirin [Adult Aspirin] 81 mg PO DAILY #30 tablet. 02/06/19 Unknown Rx Acetaminophen [Acetaminophen TAB] 2 tab PO Q4H PRN #15 tablet 05/25/19 Unknown Rx Clopidogrel [Plavix] 75 mg PO QDAY #30 tablet 05/25/19 Unknown Rx Docusate Sodium [Colace CAP] 100 mg PO BID #60 capsule 05/25/19 Unknown Rx Losartan Potassium 100 mg PO DAILY #30 tab 05/25/19 Unknown Rx Pantoprazole [Protonix TAB] 40 mg PO DAILY #30 tablet 05/25/19 Unknown Rx Potassium Chloride [K-Dur] 20 meq PO QDAY #30 tablet 05/25/19 Unknown Rx Pravastatin [Pravachol] 20 mg PO QHS #30 tablet 05/25/19 Unknown Rx amLODIPine 5 mg PO DAILY #30 tablet 05/25/19 Unknown Rx HYDROcodone/APAP 5-325 [[place] 1 each PO TID PRN #15 tablet 09/27/19 Unknown Rx 5-325 mg TAB] ISOSORBIDE MONOnitrate [Imdur ER] 30 mg PO QDAY #30 tablet 09/27/19 Unknown Rx Clotrimazole 1% [Lotrimin 1%] 1 applic TP BID 14 Days #2 tube 06/20/20 Unknown Rx Neomycn/Bacitrc/Polymyx/Pramox 1 appful TP BID 14 Days #1 06/20/20 Unknown Rx [Triple Antibiotic Plus Ointmnt] oint...g. Oxycodone HCl/Acetaminophen 1 each PO Q6HR PRN #30 tablet 11/26/20 Unknown Rx [Percocet 10/325 mg] Furosemide [Lasix TAB] 40 mg PO BID #20 tablet 11/06/21 Unknown Rx Mupirocin [Bactroban 2%] 1 applic TP TID #1 tube 11/06/21 Unknown Rx cephALEXin [Keflex] 500 mg PO Q8HR #30 cap 11/06/21 Unknown Rx Allergies Allergy/AdvReac Type Severity Reaction Status Date / Time No Known Allergies Allergy Verified 04/22/21 11:24 ED Review of Systems ROS: Stated complaint: KNOT ON LEG Other details as noted in HPI Comment: All other systems reviewed and negative ED Past Medical Hx - Past Medical History Hx Hypertension: Yes Hx CVA: No 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) Hx Congestive Heart Failure: Yes (09/2019) Hx Diabetes: Yes Hx Deep Vein Thrombosis: No Hx Pulmonary Embolism: No Hx GERD: Yes (NO MEDS) Hx Liver Disease: No Hx Renal Disease: No Hx Sickle Cell Disease: No Hx Arthritis: Yes Hx Headaches / Migraines: No Hx Seizures: No Hx Kidney Stones: No Hx Psychiatric Treatment: No Hx Asthma: Yes Hx COPD: Yes (PER H&P- PT DENIES / NO MEDS) Hx Tuberculosis: No Hx Dementia: No Hx HIV: No Additional medical history: Cardiac stent, high cholesterol, atrial flutter - Surgical History Hx Coronary Stent: Yes (X2) Hx Open Heart Surgery: Yes (CABG) Hx Pacemaker: Yes Hx Internal Defibrillator: No Hx Cholecystectomy: No Hx Appendectomy: No Hx Breast Surgery: No Additional Surgical History: CABG - Social History Smoking Status: Former Smoker - Medications Home Medications: Home Medications Medication Instructions Recorded Confirmed Last Taken Type Apixaban [Eliquis starter pack] 5 mg PO BID #60 tab 02/06/19 09/22/19 Unknown Rx Aspirin [Adult Aspirin] 81 mg PO DAILY #30 tablet. 02/06/19 09/22/19 Unknown Rx Amiodarone 200 mg PO DAILY 05/24/19 09/22/19 Unknown History Acetaminophen [Acetaminophen TAB] 2 tab PO Q4H PRN #15 tablet 05/25/19 09/22/19 Unknown Rx Clopidogrel [Plavix] 75 mg PO QDAY #30 tablet 05/25/19 09/22/19 Unknown Rx Docusate Sodium [Colace CAP] 100 mg PO BID #60 capsule 05/25/19 09/22/19 Unknown Rx Losartan Potassium 100 mg PO DAILY #30 tab 05/25/19 09/22/19 Unknown Rx Pantoprazole [Protonix TAB] 40 mg PO DAILY #30 tablet 05/25/19 09/22/19 Unknown Rx Potassium Chloride [K-Dur] 20 meq PO QDAY #30 tablet 05/25/19 09/22/19 Unknown Rx Pravastatin [Pravachol] 20 mg PO QHS #30 tablet 05/25/19 09/22/19 Unknown Rx amLODIPine 5 mg PO DAILY #30 tablet 05/25/19 09/22/19 Unknown Rx HYDROcodone/APAP 5-325 [[place] 1 each PO TID PRN #15 tablet 09/27/19 Unknown Rx 5-325 mg TAB] ISOSORBIDE MONOnitrate [Imdur ER] 30 mg PO QDAY #30 tablet 09/27/19 Unknown Rx Clotrimazole 1% [Lotrimin 1%] 1 applic TP BID 14 Days #2 tube 06/20/20 Unknown Rx Neomycn/Bacitrc/Polymyx/Pramox 1 appful TP BID 14 Days #1 06/20/20 Unknown Rx [Triple Antibiotic Plus Ointmnt] oint...g. Apixaban [Eliquis] 5 mg PO BID 10/02/20 11/20/20 11/19/20 History Aspirin [Adult Aspirin] 81 mg PO DAILY 10/02/20 11/20/20 11/19/20 History Clopidogrel [Plavix] 75 mg PO QDAY 10/02/20 11/20/20 11/19/20 History Losartan [Cozaar] 100 mg PO QDAY 10/02/20 11/20/20 11/25/20 History Bumetanide [Bumex 1 mg tab] 1 mg PO DAILY 10/23/20 11/20/20 11/25/20 History Dapagliflozin Propanediol [Farxiga] 10 mg PO DAILY 10/23/20 11/20/20 11/25/20 History Gabapentin [Neurontin] 400 mg PO TID 10/23/20 11/20/20 11/25/20 History Spironolactone [Aldactone] 25 mg PO QDAY 10/23/20 11/20/20 11/25/20 History Atorvastatin [Lipitor Tab] 80 mg PO QHS 11/20/20 11/20/20 11/25/20 History Dapagliflozin Propanediol [Farxiga] 1 tab PO DAILY 11/26/20 11/26/20 11/26/20 History Insulin Detemir (Nf) [Levemir 30 unit SQ QHS 11/26/20 11/26/20 11/25/20 History Flextouch (Nf)] Oxycodone HCl/Acetaminophen 1 each PO Q6HR PRN #30 tablet 11/26/20 Unknown Rx [Percocet 10/325 mg] Furosemide [Lasix TAB] 40 mg PO BID #20 tablet 11/06/21 Unknown Rx Mupirocin [Bactroban 2%] 1 applic TP TID #1 tube 11/06/21 Unknown Rx cephALEXin [Keflex] 500 mg PO Q8HR #30 cap 11/06/21 Unknown Rx ED Physical Exam - General Limitations: No Limitations General appearance: alert, in no apparent distress - Head Head exam: Present: atraumatic, normocephalic - Eye Eye exam: Present: normal appearance - ENT ENT exam: Present: mucous membranes moist - Neck Neck exam: Present: normal inspection - Respiratory Respiratory exam: Present: normal lung sounds bilaterally. Absent: respiratory distress - Cardiovascular Cardiovascular Exam: Present: regular rate, normal rhythm. Absent: systolic murmur, diastolic murmur, rubs, gallop - GI/Abdominal GI/Abdominal exam: Present: soft, normal bowel sounds - Rectal Rectal exam: Present: deferred - Extremities Exam Extremities exam: Present: normal inspection - Expanded Lower Extremity Exam Right Lower Leg exam: Present: swelling, abrasion (Small area of blistering.), erythema (Mild erythema around the abrasion lesion). Absent: laceration, ecchymosis, palpable cord, Rebecca's sign Foot/Toe exam: Present: normal inspection - Back Exam Back exam: Present: normal inspection - Neurological Exam Neurological exam: Present: alert, oriented X3 - Psychiatric Psychiatric exam: Present: normal affect, normal mood - Skin Skin exam: Present: warm, dry, intact, normal color. Absent: rash ED Course Vital Signs 11/06/21 19:38 Temperature 98.4 F Pulse Rate 85 Respiratory 18 Rate Blood Pressure 160/88 O2 Sat by Pulse 98 Oximetry Critical care attestation.: If time is entered above; I have spent that time in minutes in the direct care of this critically ill patient, excluding procedure time. ED Disposition Clinical Impression: Leg abrasion, infected Disposition: 01 HOME / SELF CARE / HOMELESS Is pt being admited?: No Does the pt Need Aspirin: No Condition: Stable Instructions: Abrasion, Wound Care, Adult Prescriptions: Mupirocin [Bactroban 2%] 1 applic TP TID #1 tube cephALEXin [Keflex] 500 mg PO Q8HR #30 cap Furosemide [Lasix TAB] 40 mg PO BID #20 tablet Referrals: [facility] [Provider Group] - 3-5 Days
== END 2021-11-06 23:59 | disposition home or self-care (01) ==
LOC: ED 19:35
DX: S80.811A Abrasion, right lower leg, initial encounter (principal); L08.9 Local infection of the skin and subcutaneous tissue, unspecified; X58.XXXA Exposure to other specified factors, initial encounter; Y93.89 Activity, other specified; Y92.89 Other specified places as the place of occurrence of the external cause; Y99.8 Other external cause status
CPT/HCPCS: 99282

== ENCOUNTER 2021-12-14 10:37 | Outpatient (CLI) | payer MEDICAID ==
[2021-12-14 12:54] LABS: Chol/HDL Ratio 5.63 %
== END 2021-12-14 10:38 | disposition home or self-care (01) ==
LOC: LABHHL 10:37
PROVIDERS: ATTEND Internal Medicine
DX: E11.65 Type 2 diabetes mellitus with hyperglycemia (principal); E78.5 Hyperlipidemia, unspecified
CPT/HCPCS: 36415; 80061; 83036